=== PATIENT | male | born 1945 | race American Indian/Alaskan Native ===

== ENCOUNTER 2017-01-02 07:52 | Emergency (ER) | payer MEDICARE ==
[2017-01-02 07:58] VITALS: BMI 24.3
--- NOTE | 2017-01-02 08:22 | ED PDOC ---
Arrival/HPI - General Chief Complaint: Male Genitourinary Time Seen by Provider: 01/02/17 07:56 Historian: Patient - History of Present Illness Narrative History of Present Illness (Text): 01/02/17 08:10 A 71 year old male, whose past medical history includes hypertension and BPH, presents to the emergency department complaining of a swollen prostate and diffuse lower abdominal pain that started last night. Patient describe the pain as a pressure sensation to the lower abdomen and prostate. He notes he usually urinates more frequently but he has not tried to urinate since last night. He denies any hematuria, dysuira or penile discharge. Patient denies any fever, rectal pain, stool changes, or any other complaints at this time. PMD: Dr. Ball Urologist: Dr. Lincoln Time/Duration: Other (12-18 hours) Symptom Onset: Sudden Symptom Course: Unchanged Quality: Pressure Activities at Onset: Rest Context: Home Past Medical History - Provider Review Nursing Documentation Reviewed: Yes - Cardiac Hx Hypertension: Yes - Genitourinary/Gynecological Hx Prostate Problems: Yes (enlarged) - Psychiatric Hx Substance Use: No Family/Social History - Physician Review Nursing Documentation Reviewed: Yes Family/Social History: Unknown Family HX Smoking Status: Never Smoked Hx Alcohol Use: No Hx Substance Use: No Allergies/Home Meds Allergies/Adverse Reactions: Allergies Sulfa (Sulfonamide Antibiotics) Allergy (Verified 01/02/17 07:58) RASH Home Medications: Home Meds Medication Instructions Recorded Confirmed Tamsulosin [Flomax] 0.4 mg PO DAILY 01/02/17 01/02/17 Valsartan [Diovan] 80 mg PO DAILY 01/02/17 01/02/17 levoFLOXacin [Levaquin] 500 mg PO DAILY 01/02/17 01/02/17 Review of Systems - Physician Review All systems were reviewed & negative as marked: Yes - Review of Systems Constitutional: absent: Fevers Gastrointestinal: Abdominal Pain (lower abdomen). absent: Stool Changes, Constipation, Diarrhea, Other (rectal pain) Genitourinary Male: Frequency, Other (swollen prostate). absent: Dysuria, Hematuria Physical Exam Vital Signs Reviewed: Yes Vital Signs Temp Pulse Resp BP Pulse Ox 01/02/17 10:45 76 16 128/75 99 01/02/17 09:34 66 18 167/97 H 96 01/02/17 07:52 97.5 F L 93 H 18 167/107 H 99 Temperature: Afebrile Blood Pressure: Hypertensive Pulse: Regular Respiratory Rate: Normal Appearance: Positive for: Well-Appearing, Non-Toxic, Comfortable Pain Distress: None Mental Status: Positive for: Alert and Oriented X 3 - Systems Exam Abdomen: Present: Tenderness (diffuse lower abdominal tenderness with palpation) , Distention, Normal Bowel Sounds, Other (bladder fullness). No: Peritoneal Signs, Rebound, Guarding Rectal: Present: Other (Guaiac negative). No: Rectal Tenderness Genitourinary Male: Present: Prostate Enlargement. No: Penile Discharge Back: No: CVA Tenderness, Midline Tenderness, Paraspinal Tenderness Upper Extremity: Present: Normal Inspection. No: Cyanosis, Edema Lower Extremity: Present: Normal Inspection. No: Edema Neurological: Present: GCS=15, CN II-XII Intact, Speech Normal Skin: Present: Warm, Dry, Normal Color. No: Rashes Psychiatric: Present: Alert, Oriented x 3, Normal Insight, Normal Concentration Medical Decision Making ED Course and Treatment: 01/02/17 08:10 Impression: A 71 yea old male with enlarged prostate and lower abdominal pain. Differential Diagnosis include but are not limited to: urinary obstruction Plan: -- Labs -- Urinalysis -- Toradol -- Reassess and disposition Progress Notes: 01/02/17 09:50 On reevaluation after the [place]wood, abdomen is soft and not tender. Patient no longer has symptoms. UA pending. Case was discussed with Dr. Brandt who is covering for Dr. Lincoln who will f/u on the patient as an outpatient. Patient understands the importance of follow up with Dr. Lincoln in 1-2days. He was discharged with a norwood leg bag. UA negative. - Lab Interpretations Lab Results: 01/02/17 08:30 01/02/17 08:30 Lab Results 01/02/17 09:35: Urine Color Yellow, Urine Appearance Clear, Urine pH 7.0, Ur Specific [place] 1.010, Urine Protein Negative, Urine Glucose (UA) Negative, Urine Ketones Negative, Urine Blood Negative, Urine Nitrate Negative, Urine Bilirubin Negative, Urine Urobilinogen 0.2, Ur Leukocyte Esterase Negative 01/02/17 08:30: Sodium 140, Potassium 3.6, Chloride 104, Carbon Dioxide 26, Anion Gap 14, BUN 10, Creatinine 0.9, Est GFR ( Amer) > 60, Est GFR (Non- Af Amer) > 60, Random Glucose 133 H, Calcium 9.7, Total Bilirubin 0.7, AST 27, ALT 20, Alkaline Phosphatase 90, Total Protein 7.9, Albumin 4.5, Globulin 3.4, Albumin/Globulin Ratio 1.3 01/02/17 08:30: WBC 7.9, RBC 4.03, Hgb 12.4 L, Hct 37.5 L, MCV 93.1, MCH 30.8, MCHC 33.1, RDW 13.7, Plt Count 201, MPV 11.9 H, Gran % 62.7, Lymph % (Auto) 31.2 , [place] % (Auto) 5.5, Eos % (Auto) 0.5 L, Baso % (Auto) 0.1, Gran # 4.97, Lymph # 2.5, [place] # 0.4, Eos # 0.0, Baso # 0.01 I have reviewed the lab results: Yes - Medication Orders Current Medication Orders: Discontinued Medications Ketorolac Tromethamine (Toradol) 30 mg IVP STAT STA Stop: 01/02/17 08:16 - Scribe Statement The provider has reviewed the documentation as recorded by the Scribe Fox Arizmendi Provider Scribe Attestation: All medical record entries made by the Scribe were at my direction and personally dictated by me. I have reviewed the chart and agree that the record accurately reflects my personal performance of the history, physical exam, medical decision making, and the department course for this patient. I have also personally directed, reviewed, and agree with the discharge instructions and disposition. Disposition/Present on Arrival - Present on Arrival Any Indicators Present on Arrival: No History of DVT/PE: No History of Uncontrolled Diabetes: No Urinary Catheter: No History of Decub. Ulcer: No History Surgical Site Infection Following: None - Disposition Have Diagnosis and Disposition been Completed?: Yes Diagnosis: Urinary retention Disposition: HOME/ ROUTINE Disposition Time: 10:47 Patient Plan: Discharge Condition: IMPROVED Discharge Instructions (ExitCare): Urinary Retention in Men (ED) Additional Instructions: Mr Dial, thank you for letting us take care of you today. Your provider was Dr. Parikh. You were treated for Urinary Retention. The emergency medical care you received today was directed at your acute symptoms. If you were prescribed any medication, please fill it and take as directed. It may take several days for your symptoms to resolve. Return to the Emergency Department if your symptoms worsen, do not improve, or if you have any other problems. Please contact your doctor or call one of the physicians/clinics you have been referred to that are listed on the Patient Visit Information form that is included in your discharge packet. Bring any paperwork you were given at discharge with you along with any medications you are taking to your follow up visit. Our treatment cannot replace ongoing medical care by a primary care provider (PCP) outside of the emergency department. Thank you for allowing the [facility] team to be part of your care today. If you had an X-Ray or CT scan: A Radiologist will review the ED reading if any change in treatment is needed we will contact you. If you had a blood, urine, or wound culture: It will take several days for the results, if any change in treatment is needed we will contact you. If you had an STI test: It will take 48 hours for the results. Please call after 1 week if you have not heard back. Prescriptions: Ibuprofen [Motrin] 600 mg PO Q6 PRN #30 tab PRN Reason: Pain, Moderate (4-7) Referrals: Kurtis Lincoln MD [Staff Provider] - Follow up with primary Mihir Ball MD [Primary Care Provider] - Follow up with primary Forms: [employer] (Bengali), WORK NOTE
[2017-01-02 08:40] VITALS: TEMP 97.5
[2017-01-02 08:44] LABS: ADD MANUAL DIFF? NO
[2017-01-02 08:45] LABS: BASO # 0.01 K/mm3 (0.0-2.0); BASO % 0.1 % (0.0-3.0); EOS % 0.5 % (1.5-5.0); GRAN # 4.97 (1.4-6.5); GRAN % 62.7 % (50.0-68.0); HEMATOCRIT 37.5 % (42.0-52.0); LYMPH # 2.5 (1.2-3.4); LYMPH % 31.2 % (22.0-35.0); MEAN CELL VOLUME 93.1 fL (80.0-105.0); MEAN CORPUSCULAR HEMOGLOBIN 30.8 pg (25.0-35.0); MEAN CORPUSCULAR HGB CONC 33.1 g/dl (31.0-37.0); MEAN PLATELET VOLUME 11.9 fl (7.0-11.0); MONO # 0.4 (0.1-0.6); MONO % 5.5 % (1.0-6.0); PLATELET COUNT 201 10^3/uL (120.0-450.0); RED CELL DISTRIBUTION WIDTH 13.7 % (11.5-14.5); WHITE BLOOD COUNT 7.9 10^3/ul (4.5-11.0)
[2017-01-02 08:56] LABS: ALB/GLOB RATIO 1.3 (1.1-1.8); ALKALINE PHOSPHATASE 90 U/L (38-133); ALT/SGPT 20 U/L (7-56); AST/SGOT 27 U/L (15-59); BILIRUBIN,TOTAL 0.7 mg/dL (0.2-1.3); BLOOD UREA NITROGEN 10 mg/dL (7-21); CALCIUM 9.7 mg/dL (8.4-10.5); CARBON DIOXIDE 26 mmol/L (21-33); CHLORIDE 104 mmol/L (98-107); GFR AFRICAN-AMERICAN > 60; GLUCOSE,RANDOM 133 mg/dL (70-110); POTASSIUM 3.6 mmol/L (3.6-5.0); SODIUM 140 mmol/L (132-148); TOTAL PROTEIN 7.9 g/dL (5.8-8.3)
[2017-01-02 09:38] LABS: URINE BILIRUBIN NEGATIVE (NEGATIVE); URINE BLOOD NEGATIVE (NEGATIVE); URINE GLUCOSE (UA) NEGATIVE (NEGATIVE); URINE KETONE NEGATIVE (NEGATIVE); URINE LEUKOCYTE ESTERASE NEGATIVE Leu/uL (NEGATIVE); URINE PROTEIN NEGATIVE mg/dL (<30 mg/dL); URINE UROBILINOGEN 0.2 E.U./dL (<1 E.U./dL)
[2017-01-02 09:47] LABS: URINE APPEARANCE CLEAR (CLEAR); URINE COLOR YELLOW (YELLOW)
[2017-01-02 10:46] VITALS: BP 128/75; PULSE 76; RESP 16; O2SAT 99
== END 2017-01-02 10:47 | disposition home or self-care (01) ==
LOC: ED 07:52
DX: R33.9 Retention of urine, unspecified (principal); I10 Essential (primary) hypertension; N40.0 Benign prostatic hyperplasia without lower urinary tract symptoms

== ENCOUNTER 2017-10-20 09:14 | Day surgery (SDC) | payer MEDICARE ==
[2017-10-20] MEDS ORDERED: Propofol 10 mg/ml Inj (20 ML) ONE ×2 (11:25→11:42)
[2017-10-20] MEDS ORDERED: Sodium Chloride 0.9% 1,000 ML IV SCH (12:00)
[2017-10-20 13:30] VITALS: TEMP 97.6
[2017-10-20 13:56] VITALS: BP 147/86; PULSE 68; RESP 18; O2SAT 99
== END 2017-10-20 14:30 | disposition home or self-care (01) ==
LOC: ENDO 09:14
PROVIDERS: ATTEND Specialist
DX: Z12.11 Encounter for screening for malignant neoplasm of colon (principal); D12.4 Benign neoplasm of descending colon; K64.8 Other hemorrhoids; I10 Essential (primary) hypertension; N40.0 Benign prostatic hyperplasia without lower urinary tract symptoms; Z88.2 Allergy status to sulfonamides
CPT/HCPCS: 45380; 88305; J0360; J2001; J2704; J7040

== ENCOUNTER 2018-02-01 09:28 | Emergency (ER) | payer MEDICARE ==
[2018-02-01 09:50] VITALS: BMI 25.8
[2018-02-01 10:00] VITALS: TEMP 98.9
[2018-02-01] MEDS ORDERED: Sodium Chloride 0.9% 1,000 ML IV STA (10:00)
--- NOTE | 2018-02-01 10:08 | ED PDOC ---
Arrival/HPI - General Chief Complaint: Male Genitourinary Time Seen by Provider: 02/01/18 09:53 Historian: Patient - History of Present Illness Narrative History of Present Illness (Text): 02/01/18 10:05 72yo male with pmhx of hypertension and Prostate CA (last radiation on Wednesday) , present with complaint of b/l mid back pain. States pain started after his last radiation. Reports associated dysuria. Denies abdominal pain, fever, chills , nausea, vomiting, diarrhea, constipation, chest pain, trauma, urinary/fecal incontinence, any other complaint. Past Medical History - Provider Review Nursing Documentation Reviewed: Yes - Cardiac Hx Pacemaker: No - Neurological Hx Paralysis: No - Hematological/Oncological Hx Blood Transfusions: No - Musculoskeletal/Rheumatological Hx Musculoskeletal Disorders: No - Genitourinary/Gynecological Hx Prostate Problems: Yes (enlarged) - Psychiatric Hx Emotional Abuse: No Hx Physical Abuse: No Hx Substance Use: No - Anesthesia Hx Anesthesia Reactions: No Hx Malignant Hyperthermia: No - Suicidal Assessment Feels Threatened In Home Enviroment: No Family/Social History - Physician Review Nursing Documentation Reviewed: Yes Family/Social History: Unknown Family HX Smoking Status: Never Smoked Hx Alcohol Use: Yes (ON OCCASION) Hx Substance Use: No Allergies/Home Meds Allergies/Adverse Reactions: Allergies Sulfa (Sulfonamide Antibiotics) Allergy (Verified 01/02/17 07:58) RASH Home Medications: Home Meds Medication Instructions Recorded Confirmed Cholecalciferol (Vitamin D3) 5,000 units PO DAILY 10/07/17 10/20/17 [Vitamin D3] Cyanocobalamin [Vitamin B12 1000 1,000 mcg PO DAILY 10/07/17 10/20/17 mcg Tab] Valsartan [Diovan] 80 mg PO DAILY 10/07/17 10/20/17 Vitamin E 1,000 units PO DAILY 10/07/17 10/20/17 Zinc [Zinc Chelated] 50 mg PO DAILY 10/07/17 10/20/17 Review of Systems - Physician Review All systems were reviewed & negative as marked: Yes - Review of Systems Constitutional: Normal Eyes: Normal ENT: Normal Respiratory: Normal Cardiovascular: Normal Gastrointestinal: Normal Genitourinary Male: Normal Musculoskeletal: Back Pain Skin: Normal Neurological: Normal Endocrine: Normal Hemo/Lymphatic: Normal Psychiatric: Normal Physical Exam Vital Signs Reviewed: Yes Vital Signs Temp Pulse Resp BP Pulse Ox 02/01/18 13:10 81 17 125/80 98 02/01/18 11:30 84 18 131/78 99 02/01/18 09:29 98.9 F 89 18 133/79 99 Temperature: Afebrile Blood Pressure: Normal Pulse: Regular Respiratory Rate: Normal Appearance: Positive for: Well-Appearing, Non-Toxic, Comfortable Pain Distress: None Mental Status: Positive for: Alert and Oriented X 3 - Systems Exam Head: Present: Atraumatic, Normocephalic Pupils: Present: PERRL Extroacular Muscles: Present: EOMI Conjunctiva: Present: Normal Mouth: Present: Moist Mucous Membranes Neck: Present: Normal Range of Motion Respiratory/Chest: Present: Clear to Auscultation, Good Air Exchange. No: Respiratory Distress, Accessory Muscle Use Cardiovascular: Present: Regular Rate and Rhythm, Normal S1, S2. No: Murmurs Abdomen: No: Tenderness, Distention, Peritoneal Signs, Rebound, Guarding, McBurney's Point Tender, Rovsing's Sign Present Back: No: CVA Tenderness Upper Extremity: Present: Normal Inspection. No: Cyanosis, Edema Lower Extremity: Present: Normal Inspection. No: Edema Neurological: Present: GCS=15, CN II-XII Intact, Speech Normal Skin: Present: Warm, Dry, Normal Color. No: Rashes Psychiatric: Present: Alert, Oriented x 3, Normal Insight, Normal Concentration Medical Decision Making ED Course and Treatment: 02/01/18 19:59 PT presented to ED for stated history. He was afebrile and hemodynamically stable. Lab was unremarkable. He have UTI and was treated with Rocephin in ED and DC home with keflex. He declined abdominal/pelvis CT He was referred to a Urologist. Advised to return to ED for any new or worsening symptoms. - Lab Interpretations Lab Results: 02/01/18 10:00 02/01/18 10:00 Lab Results 02/01/18 10:00: Sodium 142, Potassium 3.7, Chloride 107, Carbon Dioxide 26, Anion Gap 14, BUN 9, Creatinine 0.9, Est GFR ( Amer) > 60, Est GFR (Non- Af Amer) > 60, Random Glucose 113 H, Calcium 9.5, Total Bilirubin 0.7, AST 20, ALT 19, Alkaline Phosphatase 78, Lactate Dehydrogenase 477, Total Creatine Kinase 145, Troponin I < 0.01, Total Protein 7.3, Albumin 4.1, Globulin 3.2, Albumin/Globulin Ratio 1.3, Amylase 40, Lipase 31 02/01/18 10:00: Urine Color Light yellow, Urine Appearance Cloudy, Urine pH 6.0 , Ur Specific [place] 1.010, Urine Protein 30 H, Urine Glucose (UA) Negative, Urine Ketones Negative, Urine Blood Large H, Urine Nitrate Negative, Urine Bilirubin Negative, Urine Urobilinogen 0.2, Ur Leukocyte Esterase Large H, Urine RBC Tntc, Urine WBC Tntc, Urine Bacteria Large 02/01/18 10:00: PT 12.7 H, INR 1.10 H, APTT 30.3 02/01/18 10:00: WBC 7.3, RBC 3.61, Hgb 10.9 L, Hct 33.4 L, MCV 92.5, MCH 30.2, MCHC 32.6, RDW 13.1, Plt Count 222, MPV 10.7, Gran % 42.8 L, Lymph % (Auto) 38.3 H, [place] % (Auto) 14.9 H, Eos % (Auto) 3.6, Baso % (Auto) 0.4, Gran # 3.10, Lymph # (Auto) 2.8, [place] # (Auto) 1.1 H, Eos # (Auto) 0.3, Baso # (Auto) 0.03 - Medication Orders Current Medication Orders: Discontinued Medications Sodium Chloride (Sodium Chloride 0.9%) 1,000 mls @ 999 mls/hr IV .Q1H1M STA Stop: 02/01/18 11:00 Last Admin: 02/01/18 10:20 Dose: 999 mls/hr eMAR Start Stop Document 02/01/18 10:20 SF (Rec: 02/01/18 10:21 [id number]) Intravenous Solution Start Date 02/01/18 Start Time 10:21 End Date 02/01/18 End time 11:22 Total Infusion Time 61 Ceftriaxone Sodium (Rocephin 1 Gram Ivpb) 1 gm in 100 mls @ 200 mls/hr IVPB STAT STA PRN Reason: Protocol Stop: 02/01/18 11:16 Last Admin: 02/01/18 11:06 Dose: 200 mls/hr eMAR Start Stop Document 02/01/18 11:06 SF (Rec: 02/01/18 11:06 SF [id number]) Intravenous Solution Start Date 02/01/18 Start Time 11:06 End Date 02/01/18 End time 11:36 Total Infusion Time 30 Ketorolac Tromethamine (Toradol) 30 mg IVP STAT STA Stop: 02/01/18 10:01 Last Admin: 02/01/18 10:21 Dose: 30 mg MAR Pain Assessment Document 02/01/18 10:21 SF (Rec: 02/01/18 10:21 SF [id number]) Pain Reassessment Is this a pain reassessment? Yes Sleep Is patient sleeping during reassessment? No Presence of Pain Presence of Pain Yes IVP Administration Document 02/01/18 10:21 SF (Rec: 02/01/18 10:21 SF [id number]) Charges for Administration # of IVP Administrations 1 Phenazopyridine HCl (Pyridium) 200 mg PO STAT STA Stop: 02/01/18 12:06 Last Admin: 02/01/18 13:14 Dose: 200 mg Disposition/Present on Arrival - Present on Arrival Any Indicators Present on Arrival: No History of DVT/PE: No History of Uncontrolled Diabetes: No Urinary Catheter: No History of Decub. Ulcer: No History Surgical Site Infection Following: None - Disposition Have Diagnosis and Disposition been Completed?: Yes Diagnosis: UTI (urinary tract infection) Disposition: HOME/ ROUTINE Disposition Time: 12:00 Patient Plan: Discharge Condition: STABLE Discharge Instructions (ExitCare): Urinary Tract Infections in Adults Additional Instructions: Follow up with your doctor/Urologist Return to ED for any new or worsening symptoms (fever, nausea, vomiting, abdominal pain) Prescriptions: Cephalexin [Keflex] 500 mg PO QID #28 capsule Phenazopyridine [Phenazopyridine HCl] 200 mg PO TID #6 tab Referrals: James Westfall MD [Staff Provider] - Follow up with primary Forms: [employer] (Paraguayan)
[2018-02-01 10:33] LABS: BASO # 0.03 K/mm3 (0.0-2.0); BASO % 0.4 % (0.0-3.0); EOS # 0.3 (0.0-0.7); EOS % 3.6 % (1.5-5.0); GRAN # 3.1 (1.4-6.5); GRAN % 42.8 % (50.0-68.0); HEMOGLOBIN 10.9 g/dL (14.0-18.0); LYMPH # 2.8 (1.2-3.4); LYMPH % 38.3 % (22.0-35.0); MEAN CELL VOLUME 92.5 fl (80.0-105.0); MEAN CORPUSCULAR HEMOGLOBIN 30.2 pg (25.0-35.0); MEAN CORPUSCULAR HGB CONC 32.6 g/dl (31.0-37.0); MEAN PLATELET VOLUME 10.7 fl (7.0-11.0); MONO # 1.1 (0.1-0.6); MONO % 14.9 % (1.0-6.0); RBC 3.61 10^6/uL (3.5-6.1); RED CELL DISTRIBUTION WIDTH 13.1 % (11.5-14.5); URINE BILIRUBIN NEGATIVE (NEGATIVE); URINE BLOOD LARGE (NEGATIVE); URINE GLUCOSE (UA) NEGATIVE (NEGATIVE); URINE LEUKOCYTE ESTERASE LARGE Leu/uL (NEGATIVE); URINE PROTEIN 30 mg/dL (<30 mg/dL); URINE UROBILINOGEN 0.2 E.U./dL (<1 E.U./dL); WHITE BLOOD COUNT 7.3 10^3/ul (4.5-11.0)
[2018-02-01 10:34] LABS: ALB/GLOB RATIO 1.3 (1.1-1.8); ALBUMIN 4.1 g/dL (3.0-4.8); ALT/SGPT 19 U/L (7-56); AMYLASE 40 U/L (35-125); AST/SGOT 20 U/L (17-59); BLOOD UREA NITROGEN 9 mg/dL (7-21); CALCIUM 9.5 mg/dL (8.4-10.5); GFR NON-AFRICAN AMERICAN > 60; LIPASE 31 U/L (23-300); URINE APPEARANCE CLOUDY (CLEAR); URINE COLOR LIGHT YELLOW (YELLOW)
[2018-02-01 10:41] LABS: INR 1.1 (0.93-1.08); PARTIAL THROMBOPLASTIN TIME 30.3 Seconds (25.1-36.5); PROTHROMBIN TIME 12.7 SECONDS (9.4-12.5)
[2018-02-01 10:43] LABS: URINE RBC TNTC /hpf (0-2); URINE WBC TNTC /hpf (0-6)
[2018-02-01 10:44] LABS: URINE BACTERIA LARGE (NEG)
[2018-02-01 10:45] LABS: TROPONIN I < 0.01 ng/mL
[2018-02-01] MEDS ORDERED: cefTRIAXone 1 gm 1 GM/100 ML BAG IVPB STA (10:47)
[2018-02-01 13:11] VITALS: BP 125/80; PULSE 81; RESP 17; O2SAT 98
== END 2018-02-01 13:15 | disposition home or self-care (01) ==
LOC: ED 09:28
DX: N39.0 Urinary tract infection, site not specified (principal); I10 Essential (primary) hypertension; Z85.46 Personal history of malignant neoplasm of prostate
CPT/HCPCS: 80053; 81001; 82150; 82550; 83615; 83690; 84484; 85025; 85610; 85730; 87040; 87086; 96361; 96365; 96375; 99285; J0696; J1885; J7030

== ENCOUNTER 2018-05-15 22:01 | Emergency (ER) | payer MEDICARE ==
[2018-05-15 22:02] VITALS: BMI 25.8
[2018-05-15 22:37] VITALS: RESP 18; TEMP 98.3
[2018-05-15] MEDS ORDERED: Sodium Chloride 0.9% 1,000 ML IV STA (23:11)
--- NOTE | 2018-05-15 23:20 | ED PDOC ---
Arrival/HPI - General Historian: Patient - History of Present Illness Narrative History of Present Illness (Text): 05/15/18 23:13 72yo male with pmhx hypertension, kidney stone, prostate CA on remission present with few days history of b/l mid back pain and suprapubic pain. States his PMd scheduled him to see a Urologist this week, but he couldn't take the pain anymore. States back pain is worse when sitting backward on a chair, otherwise no relieving factors. +Hematuria. Denies nausea, vomiting, fever, chills, dizziness, diarrhea, constipation, dysuria, urinary frequency, focal weakness, urinary/fecal incontinence, chest pain, saddle anesthesia, any other complaint. <Antonio Shell A - Last Filed: 05/16/18 01:29> <Beny Cervantes - Last Filed: 05/16/18 23:23> - General Chief Complaint: GI Problem Time Seen by Provider: 05/15/18 22:08 Past Medical History - Provider Review Nursing Documentation Reviewed: Yes - Cardiac Hx Pacemaker: No - Pulmonary Hx Respiratory Disorders: No - Neurological Hx Paralysis: No - HEENT Hx HEENT Disorder: No - Renal Hx Renal Disorder: No - Endocrine/Metabolic Hx Endocrine Disorders: No - Hematological/Oncological Hx Blood Transfusions: No - Integumentary Hx Dermatological Disorder: No - Musculoskeletal/Rheumatological Hx Musculoskeletal Disorders: No - Gastrointestinal Hx Gastrointestinal Disorders: No - Genitourinary/Gynecological Hx Prostate Cancer: Yes Hx Prostate Problems: Yes (enlarged) Other/Comment: Brachy therapy - Psychiatric Hx Emotional Abuse: No Hx Physical Abuse: No Hx Substance Use: No - Surgical History Other/Comment: biopsy of prostate - Anesthesia Hx Anesthesia: Yes Hx Anesthesia Reactions: No Hx Malignant Hyperthermia: No - Suicidal Assessment Feels Threatened In Home Enviroment: No <Antonio Shell A - Last Filed: 05/16/18 01:29> Family/Social History - Physician Review Nursing Documentation Reviewed: Yes Family/Social History: Unknown Family HX Smoking Status: Never Smoked Hx Alcohol Use: Yes (ON OCCASION) Frequency of alcohol use: Socially Hx Substance Use: No <Antonio Shell A - Last Filed: 05/16/18 01:29> Allergies/Home Meds <Antonio Shell A - Last Filed: 05/16/18 01:29> <Beny Cervantes - Last Filed: 05/16/18 23:23> Allergies/Adverse Reactions: Allergies Sulfa (Sulfonamide Antibiotics) Allergy (Verified 05/15/18 22:50) RASH Home Medications: Home Meds Medication Instructions Recorded Confirmed Cholecalciferol (Vitamin D3) 5,000 units PO DAILY 10/07/17 10/20/17 [Vitamin D3] Cyanocobalamin [Vitamin B12 1000 1,000 mcg PO DAILY 10/07/17 10/20/17 mcg Tab] RX: Valsartan [Diovan] 80 mg PO DAILY 10/07/17 10/20/17 RX: Vitamin E 1,000 units PO DAILY 10/07/17 10/20/17 RX: Zinc [Zinc Chelated] 50 mg PO DAILY 10/07/17 10/20/17 Review of Systems - Physician Review All systems were reviewed & negative as marked: Yes - Review of Systems Constitutional: Normal Eyes: Normal ENT: Normal Respiratory: Normal Cardiovascular: Normal Gastrointestinal: Abdominal Pain. absent: Constipation, Diarrhea, Nausea, Vomiting, Hematochezia, Hematemesis Genitourinary Male: Normal Musculoskeletal: Back Pain Skin: Normal Neurological: Normal Endocrine: Normal Hemo/Lymphatic: Normal Psychiatric: Normal <Antonio Shell - Last Filed: 05/16/18 01:29> Physical Exam Vital Signs Reviewed: Yes Vital Signs Temp Pulse Resp BP Pulse Ox 05/15/18 22:02 98.3 F 80 18 186/101 H 97 Temperature: Afebrile Blood Pressure: Normal Pulse: Regular Respiratory Rate: Normal Appearance: Positive for: Well-Appearing, Non-Toxic, Comfortable Pain Distress: None Mental Status: Positive for: Alert and Oriented X 3 - Systems Exam Head: Present: Atraumatic, Normocephalic Pupils: Present: PERRL Extroacular Muscles: Present: EOMI Conjunctiva: Present: Normal Mouth: Present: Moist Mucous Membranes Neck: Present: Normal Range of Motion Respiratory/Chest: Present: Clear to Auscultation, Good Air Exchange. No: Respiratory Distress, Accessory Muscle Use Cardiovascular: Present: Regular Rate and Rhythm, Normal S1, S2. No: Murmurs Abdomen: Present: Tenderness (Suprapubic tenderness), Normal Bowel Sounds (Hyperactive x 4), Guarding (Voluntary), Other (Soft). No: Distention, Peritoneal Signs, Rebound, McBurney's Point Tender, Rovsing's Sign Present Back: No: CVA Tenderness, Midline Tenderness, Paraspinal Tenderness Upper Extremity: Present: Normal Inspection. No: Cyanosis, Edema Lower Extremity: Present: Normal Inspection. No: Edema Neurological: Present: GCS=15, CN II-XII Intact, Speech Normal Skin: Present: Warm, Dry, Normal Color. No: Rashes Psychiatric: Present: Alert, Oriented x 3, Normal Insight, Normal Concentration <Diru,Happiness A - Last Filed: 05/16/18 01:29> Vital Signs Temp Pulse Resp BP Pulse Ox 05/16/18 02:43 84 18 170/100 H 98 05/15/18 22:02 98.3 F 80 18 186/101 H 97 <Beny Cervantes - Last Filed: 05/16/18 23:23> Medical Decision Making ED Course and Treatment: 05/15/18 23:32 72yo male in ED for b/l mid back pain and suprapubic pain x days. Pt reported history of kidney stone. He had no CVAT b/l Differential includes kidney stone vs UTI Vs muscular back pain Labs Abd/pelvis CT 1L Ns Toradol will reassess 05/16/18 01:31 IMPRESSION: Moderate prostatomegaly. Significantly distended, thickened bladder suggestive of urinary retention. Secondary moderate bilateral hydroureteronephrosis. Radiotherapy seeds of the prostate are noted. Uncomplicated left inguinal hernia containing nonincarcerated small bowel. Right posterior lateral bladder diverticulum is noted. Pt is hemodynamically stable in ED. He had no leukocytosis. Potassium was repleted. He have UTI treated with Rocephin in ED Pt notes he is on Fosmax. States he is able to urinate. He have appointment with his Urologist on Wednesday. He will be DC home with keflex All result was DW the pt. - RAD Interpretation Radiology Orders: 05/15/18 23:11 ABD & PELVIS W/O PO OR IV CONT [CT] Stat <Diru,Happiness A - Last Filed: 05/16/18 01:29> - Lab Interpretations Lab Results: 05/15/18 23:42 05/15/18 23:42 Lab Results 05/16/18 00:01: Urine Color Yellow, Urine Appearance Cloudy, Urine pH 6.5, Ur Specific [place] <= 1.005, Urine Protein 30 H, Urine Glucose (UA) Negative, Urine Ketones Negative, Urine Blood Large H, Urine Nitrate Positive H, Urine Bilirubin Negative, Urine Urobilinogen 0.2, Ur Leukocyte Esterase Large H, Urine RBC 1 - 3, Urine WBC Tntc, Ur Epithelial Cells 0 - 2, Urine Bacteria Mod 05/15/18 23:42: Sodium 133, Potassium 3.1 L, Chloride 98, Carbon Dioxide 25, Anion Gap 13, BUN 8, Creatinine 1.0, Est GFR ( Amer) > 60, Est GFR (Non- Af Amer) > 60, Random Glucose 108, Calcium 9.2, Magnesium 2.0, Total Bilirubin 0.7, AST 33, ALT 23, Alkaline Phosphatase 85, Total Protein 7.3, Albumin 4.0, Globulin 3.2, Albumin/Globulin Ratio 1.2, Lipase 33 05/15/18 23:42: PT 12.2, INR 1.07, APTT 27.4 05/15/18 23:42: WBC 5.3 D, RBC 3.80, Hgb 11.2 L, Hct 34.1 L, MCV 89.7, MCH 29.5, MCHC 32.8, RDW 14.2, Plt Count 211, MPV 10.8, Gran % 47.9 L, Lymph % (Auto) 35.8 H, [place] % (Auto) 14.8 H, Eos % (Auto) 1.1 L, Baso % (Auto) 0.4, Gran # 2.55, Lymph # (Auto) 1.9, [place] # (Auto) 0.8 H, Eos # (Auto) 0.1, Baso # (Auto) 0.02 - RAD Interpretation Radiology Orders: 05/15/18 23:11 ABD & PELVIS W/O PO OR IV CONT [CT] Stat - Medication Orders Current Medication Orders: Discontinued Medications Sodium Chloride (Sodium Chloride 0.9%) 1,000 mls @ 1,000 mls/hr IV .Q1H STA Stop: 05/16/18 00:10 Last Admin: 05/15/18 23:44 Dose: 1,000 mls/hr eMAR Start Stop Document 05/15/18 23:44 SS (Rec: 05/15/18 23:44 SS [id number]) Intravenous Solution Start Date 05/15/18 Start Time 23:44 End Date 05/16/18 End time 00:44 Total Infusion Time 60 Ceftriaxone Sodium (Rocephin 1 Gram Ivpb) 1 gm in 100 mls @ 200 mls/hr IVPB STAT STA; Protocol Stop: 05/16/18 01:16 Last Admin: 05/16/18 01:32 Dose: 200 mls/hr eMAR Start Stop Document 05/16/18 01:32 SS (Rec: 05/16/18 01:32 SS [id number]) Intravenous Solution Start Date 05/16/18 Start Time 01:32 End Date 05/16/18 End time 02:02 Total Infusion Time 30 Ketorolac Tromethamine (Toradol) 30 mg IVP STAT STA Stop: 05/15/18 23:12 Last Admin: 05/15/18 23:44 Dose: 30 mg MAR Pain Assessment Document 05/15/18 23:44 SS (Rec: 05/15/18 23:45 SS [id number]) Pain Reassessment Is this a pain reassessment? No Sleep Is patient sleeping during reassessment? No Presence of Pain Presence of Pain Yes Pain Scale Used Protocol: PSCALES Pain Scale Used Numeric Location Upper or Lower Lower Pain Location Body Site Abdomen Description Pain Behavior Rubbing Site Restlessness IVP Administration Document 05/15/18 23:44 SS (Rec: 05/15/18 23:45 SS [id number]) Charges for Administration # of IVP Administrations 1 Potassium Chloride (K-Dur 20 Meq Er Tab) 40 meq PO STAT STA Stop: 05/16/18 00:12 Last Admin: 05/16/18 00:58 Dose: 40 meq <Beny Cervantes - Last Filed: 05/16/18 23:23> - PA / CAR WASH ATTENDANT / Resident Statement PARK has reviewed & agrees with the documentation as recorded. PARK has examined the patient and agrees with the treatment plan. <Beny Cervantes - Last Filed: 05/16/18 23:23> Disposition/Present on Arrival - Present on Arrival Any Indicators Present on Arrival: No History of DVT/PE: No History of Uncontrolled Diabetes: No Urinary Catheter: No History of Decub. Ulcer: No History Surgical Site Infection Following: None - Disposition Have Diagnosis and Disposition been Completed?: Yes Disposition Time: 01:40 Patient Plan: Discharge <Antonio Shell - Last Filed: 05/16/18 01:29> <Beny Cervantes - Last Filed: 05/16/18 23:23> - Disposition Diagnosis: UTI (urinary tract infection) Disposition: HOME/ ROUTINE Condition: STABLE Discharge Instructions (ExitCare): Urinary Tract Infections in Adults Additional Instructions: Follow up with your Urologist Return to ED for any new or worsening symptoms Prescriptions: Cephalexin [cephalexin] 500 mg PO QID #28 cap Referrals: Wallace Peralta MD [Primary Care Provider] - Follow up with primary Forms: [employer] (Armenian)
[2018-05-15 23:58] LABS: BASO # 0.02 K/mm3 (0.0-2.0); BASO % 0.4 % (0.0-3.0); EOS # 0.1 (0.0-0.7); EOS % 1.1 % (1.5-5.0); GRAN # 2.55 (1.4-6.5); GRAN % 47.9 % (50.0-68.0); HEMOGLOBIN 11.2 g/dL (14.0-18.0); LYMPH # 1.9 (1.2-3.4); LYMPH % 35.8 % (22.0-35.0); MEAN CELL VOLUME 89.7 fl (80.0-105.0); MEAN CORPUSCULAR HEMOGLOBIN 29.5 pg (25.0-35.0); MEAN CORPUSCULAR HGB CONC 32.8 g/dl (31.0-37.0); MEAN PLATELET VOLUME 10.8 fl (7.0-11.0); MONO # 0.8 (0.1-0.6); MONO % 14.8 % (1.0-6.0); RBC 3.8 10^6/uL (3.5-6.1); RED CELL DISTRIBUTION WIDTH 14.2 % (11.5-14.5); WHITE BLOOD COUNT 5.3 10^3/ul (4.5-11.0)
[2018-05-16 00:04] LABS: INR 1.07; PARTIAL THROMBOPLASTIN TIME 27.4 Seconds (25.1-36.5); PROTHROMBIN TIME 12.2 SECONDS (9.4-12.5)
[2018-05-16 00:09] LABS: ALB/GLOB RATIO 1.2 (1.1-1.8); ALT/SGPT 23 U/L (7-56); AST/SGOT 33 U/L (17-59); BLOOD UREA NITROGEN 8 mg/dL (7-21); CALCIUM 9.2 mg/dL (8.4-10.5); GFR NON-AFRICAN AMERICAN > 60; LIPASE 33 U/L (23-300)
[2018-05-16] MEDS ORDERED: Potassium Chloride 20 mEq ER Tab PO STA (00:11)
[2018-05-16 00:19] LABS: PH,URINE 6.5 (4.7-8.0); URINE BILIRUBIN NEGATIVE (NEGATIVE); URINE BLOOD LARGE (NEGATIVE); URINE GLUCOSE (UA) NEGATIVE (NEGATIVE); URINE LEUKOCYTE ESTERASE LARGE Leu/uL (NEGATIVE); URINE PROTEIN 30 mg/dL (<30 mg/dL); URINE UROBILINOGEN 0.2 E.U./dL (<1 E.U./dL)
[2018-05-16 00:24] LABS: URINE APPEARANCE CLOUDY (CLEAR); URINE COLOR YELLOW (YELLOW)
[2018-05-16 00:34] LABS: URINE EPITHELIAL CELLS 0 - 2 /hpf (0-5); URINE WBC TNTC /hpf (0-6)
[2018-05-16 00:38] LABS: URINE BACTERIA MOD (NEG)
[2018-05-16] MEDS ORDERED: cefTRIAXone 1 gm 1 GM/100 ML BAG IVPB STA (00:47)
[2018-05-16 02:44] VITALS: BP 170/100; PULSE 84; O2SAT 98
--- NOTE | 2018-05-16 10:32 | CT ---
Date of service: 05/16/2018 PROCEDURE: CT Abdomen and Pelvis without intravenous contrast HISTORY: back/abdominal pain COMPARISON: None. TECHNIQUE: Without contrast. Contrast dose: Radiation dose: Total exam DLP = 503 mGy-cm. This CT exam was performed using one or more of the following dose reduction techniques: Automated exposure control, adjustment of the mA and/or kV according to patient size, and/or use of iterative reconstruction technique. FINDINGS: LOWER THORAX: Unremarkable. LIVER: Unremarkable. No gross lesion or ductal dilatation. GALLBLADDER AND BILE DUCTS: Unremarkable. PANCREAS: Unremarkable. No gross lesion or ductal dilatation. SPLEEN: Unremarkable. ADRENALS: Unremarkable. No mass. KIDNEYS AND URETERS: There is moderate bilateral hydronephrosis and distention of the bladder. There is a 2 mm nonobstructing stone in the right kidney VASCULATURE: Unremarkable. No aortic aneurysm. BOWEL: Unremarkable. No obstruction. No gross mural thickening. There is a left inguinal hernia containing a loop of small bowel. There is no associated obstruction. APPENDIX: Unremarkable. Normal appendix. PERITONEUM: Unremarkable. No free fluid. No free air. LYMPH NODES: Unremarkable. No enlarged lymph nodes. BLADDER: Distention of the bladder REPRODUCTIVE: Multiple radiation seeds are seen in the prostate. The prostate is enlarged measuring 63 x 69 mm. BONES: No acute fracture. OTHER FINDINGS: The report concurs with the preliminary [facility] report IMPRESSION: Distended bladder with moderate bilateral hydronephrosis. Left inguinal hernia containing a loop of small bowel with no associated obstruction. Enlarged prostate containing metallic radiation therapy seeds.
--- NOTE | 2018-05-16 13:05 | CARD ---
APPROVED REPORT Date of service: 05/15/2018 EKG Measurement Heart [id number] <Conclusion> Normal sinus rhythm Right bundle branch block Abnormal ECG
== END 2018-05-16 02:43 | disposition home or self-care (01) ==
LOC: ED 22:01
DX: N39.0 Urinary tract infection, site not specified (principal); I10 Essential (primary) hypertension
CPT/HCPCS: 74176; 80053; 81001; 83690; 83735; 85025; 85610; 85730; 87086; 93005; 96361; 96365; 96375; 99283; J0696; J1885; J7030

== ENCOUNTER 2018-06-01 14:59 | Emergency (ER) | payer MEDICARE ==
[2018-06-01 15:11] VITALS: BMI 26.1
[2018-06-01 15:18] VITALS: RESP 18; TEMP 97.9
--- NOTE | 2018-06-01 15:36 | ED PDOC ---
Arrival/HPI - General Chief Complaint: Male Genitourinary Time Seen by Provider: 06/01/18 15:13 Historian: Patient - History of Present Illness Narrative History of Present Illness (Text): 06/01/18 16:04 72yo male with pmhx of hypertension, Prostate CA on remission who present with complaint of urinary retention x 2weeks. States he has dripping for the past two weeks. Saw his PMD and was referred to the ED. Reports lower abdominal discomfort. Denies fever, chills, back pain, dysuria, any other complaint. Past Medical History - Provider Review Nursing Documentation Reviewed: Yes - Infectious Disease Hx of Infectious Diseases: None - Cardiac Hx Hypertension: Yes Hx Pacemaker: No - Pulmonary Hx Respiratory Disorders: No - Neurological Hx Paralysis: No - HEENT Hx HEENT Disorder: No - Renal Hx Renal Disorder: No - Endocrine/Metabolic Hx Endocrine Disorders: No - Hematological/Oncological Hx Blood Transfusions: No - Integumentary Hx Dermatological Disorder: No - Musculoskeletal/Rheumatological Hx Musculoskeletal Disorders: No - Gastrointestinal Hx Gastrointestinal Disorders: No - Genitourinary/Gynecological Hx Prostate Cancer: Yes Hx Prostate Problems: Yes (enlarged) Other/Comment: Brachy therapy - Psychiatric Hx Emotional Abuse: No Hx Physical Abuse: No Hx Substance Use: No - Surgical History Other/Comment: biopsy of prostate - Anesthesia Hx Anesthesia: Yes Hx Anesthesia Reactions: No Hx Malignant Hyperthermia: No - Suicidal Assessment Feels Threatened In Home Enviroment: No Family/Social History - Physician Review Nursing Documentation Reviewed: Yes Family/Social History: Unknown Family HX Smoking Status: Never Smoked Hx Alcohol Use: Yes (ON OCCASION) Hx Substance Use: No Allergies/Home Meds Allergies/Adverse Reactions: Allergies Sulfa (Sulfonamide Antibiotics) Allergy (Verified 05/15/18 22:50) RASH Home Medications: Home Meds Medication Instructions Recorded Confirmed Losartan [Cozaar] 1 tab PO DAILY 06/01/18 06/01/18 Tamsulosin [Flomax] 1 cap PO BID 06/01/18 06/01/18 Review of Systems - Physician Review All systems were reviewed & negative as marked: Yes - Review of Systems Constitutional: Normal Eyes: Normal ENT: Normal Respiratory: Normal Cardiovascular: Normal Gastrointestinal: Normal Genitourinary Male: absent: Urinary Output Changes (Urinary retention) Musculoskeletal: Normal Skin: Normal Neurological: Normal Endocrine: Normal Hemo/Lymphatic: Normal Psychiatric: Normal Physical Exam Vital Signs Reviewed: Yes Vital Signs Temp Pulse Resp BP Pulse Ox 06/01/18 14:59 97.9 F 72 18 190/94 H 98 Temperature: Afebrile Blood Pressure: Normal Pulse: Regular Respiratory Rate: Normal Appearance: Positive for: Well-Appearing, Non-Toxic, Comfortable Pain Distress: None Mental Status: Positive for: Alert and Oriented X 3 - Systems Exam Head: Present: Atraumatic, Normocephalic Pupils: Present: PERRL Extroacular Muscles: Present: EOMI Conjunctiva: Present: Normal Mouth: Present: Moist Mucous Membranes Neck: Present: Normal Range of Motion Respiratory/Chest: Present: Clear to Auscultation, Good Air Exchange. No: Respiratory Distress, Accessory Muscle Use Cardiovascular: Present: Regular Rate and Rhythm, Normal S1, S2. No: Murmurs Abdomen: Present: Distention (Mild distention of the pelvic/lower abdomen noted), Normal Bowel Sounds, Other (Soft). No: Tenderness, Peritoneal Signs, Rebound, Guarding, Rovsing's Sign Present Back: Present: Normal Inspection Upper Extremity: Present: Normal Inspection. No: Cyanosis, Edema Lower Extremity: Present: Normal Inspection. No: Edema Neurological: Present: GCS=15, CN II-XII Intact, Speech Normal Skin: Present: Warm, Dry, Normal Color. No: Rashes Psychiatric: Present: Alert, Oriented x 3, Normal Insight, Normal Concentration Medical Decision Making ED Course and Treatment: 06/01/18 19:39 Pt presented to ED for stated history. His BP was elevated and he reported taking his medication today. He was neurologically intact. Trotter was inserted and over 2L of urine was noted. His BP improved slightly with medication in ED UA and UC was ordered. Pt however noted that he didn't finish the antibiotic he was given here earlier this month for UTI and he was called in [facility], but also did not take it. He was given a rx of another Vantin and was strongly advised to take it and f/u with Urologist He will be DC home with a leg bag. Disposition/Present on Arrival - Present on Arrival Any Indicators Present on Arrival: No History of DVT/PE: No History of Uncontrolled Diabetes: No Urinary Catheter: No History of Decub. Ulcer: No History Surgical Site Infection Following: None - Disposition Have Diagnosis and Disposition been Completed?: Yes Diagnosis: Acute urinary retention Disposition: HOME/ ROUTINE Disposition Time: 19:45 Patient Plan: Discharge Patient Problems: Current Active Problems Problem Status Onset Acute urinary retention Acute Condition: STABLE Discharge Instructions (ExitCare): Urinary Retention Additional Instructions: Follow up with a Urologist Return to ED for any new or worsening symptoms Prescriptions: Cefpodoxime [Vantin] 100 mg PO BID #14 tab Referrals: Wallace Peralta MD [Primary Care Provider] - Follow up with primary Brianna Westfall MD [Staff Provider] - Follow up with primary Forms: [employer] (Gabonese)
[2018-06-01 16:39] LABS: PH,URINE 6.5 (4.7-8.0); URINE BILIRUBIN NEGATIVE (NEGATIVE); URINE BLOOD NEGATIVE (NEGATIVE); URINE GLUCOSE (UA) NEGATIVE (NEGATIVE); URINE LEUKOCYTE ESTERASE NEGATIVE Leu/uL (NEGATIVE); URINE PROTEIN NEGATIVE mg/dL (<30 mg/dL); URINE UROBILINOGEN 0.2 E.U./dL (<1 E.U./dL)
[2018-06-01 16:43] LABS: URINE APPEARANCE CLEAR (CLEAR); URINE COLOR LIGHT YELLOW (YELLOW)
[2018-06-01 20:58] VITALS: BP 190/97; PULSE 83
[2018-06-01 21:23] VITALS: O2SAT 98
== END 2018-06-01 21:18 | disposition home or self-care (01) ==
LOC: ED 14:59
DX: R33.9 Retention of urine, unspecified (principal)

== ENCOUNTER 2018-06-12 20:57 | Inpatient (IN) | payer MEDICARE ==
[2018-06-12] MEDS ORDERED: Sodium Chloride 0.9% 1,000 ML IV STA (21:33)
--- NOTE | 2018-06-12 21:37 | ED PDOC ---
Arrival/HPI - General Chief Complaint: Dizziness/Lightheaded Time Seen by Provider: 06/12/18 21:22 Historian: Patient - History of Present Illness Narrative History of Present Illness (Text): 06/12/18 21:33 Corby Dial is a 72 year old male, whose past medical history includes hypertension and prostate cancer s/p radiation, who presents to the Emergency department brought in by EMS complaining of near-syncope. Patient states he has was at home and has been experiencing generalized weakness/malaise today. Patient reports he felt near-syncopal tonight and notes he legs "gave out" from underneath him. Patient notes he recently finished a course of Vantin for a "kidney infection." Patient denies any chest pain, shortness of breath, nausea, back pain, neck pain, headache, dizziness, or any other complaints. PMD: Dr. Peralta Urologist: Dr. Karma Westfall Symptom Onset: Gradual Symptom Course: Unchanged Activities at Onset: Light Context: Home Past Medical History - Provider Review Nursing Documentation Reviewed: Yes - Infectious Disease Hx of Infectious Diseases: None - Cardiac Hx Hypertension: Yes Hx Pacemaker: No - Pulmonary Hx Respiratory Disorders: No - Neurological Hx Paralysis: No - HEENT Hx HEENT Disorder: No - Renal Hx Renal Disorder: No - Endocrine/Metabolic Hx Endocrine Disorders: No - Hematological/Oncological Hx Blood Transfusions: No - Integumentary Hx Dermatological Disorder: No - Musculoskeletal/Rheumatological Hx Musculoskeletal Disorders: No - Gastrointestinal Hx Gastrointestinal Disorders: No - Genitourinary/Gynecological Hx Prostate Cancer: Yes Hx Prostate Problems: Yes (enlarged) Other/Comment: Brachy therapy - Psychiatric Hx Emotional Abuse: No Hx Physical Abuse: No Hx Substance Use: No - Surgical History Other/Comment: biopsy of prostate - Anesthesia Hx Anesthesia: Yes Hx Anesthesia Reactions: No Hx Malignant Hyperthermia: No - Suicidal Assessment Feels Threatened In Home Enviroment: No Family/Social History - Physician Review Nursing Documentation Reviewed: Yes Family/Social History: Unknown Family HX Smoking Status: Never Smoked Hx Alcohol Use: Yes (ON OCCASION) Hx Substance Use: No Allergies/Home Meds Allergies/Adverse Reactions: Allergies Sulfa (Sulfonamide Antibiotics) Allergy (Verified 05/15/18 22:50) RASH Home Medications: Home Meds Medication Instructions Recorded Confirmed Losartan [Cozaar] 1 tab PO DAILY 06/01/18 06/01/18 Tamsulosin [Flomax] 1 cap PO BID 06/01/18 06/01/18 Review of Systems - Physician Review All systems were reviewed & negative as marked: Yes - Review of Systems Constitutional: Other (+generalized malaise/weakness) Eyes: Normal ENT: Normal Respiratory: Normal. absent: SOB, Cough Cardiovascular: Other (+near-syncopal). absent: Chest Pain Gastrointestinal: Vomiting Musculoskeletal: Normal. absent: Back Pain, Neck Pain Skin: Normal. absent: Rash Endocrine: Normal Hemo/Lymphatic: Normal Psychiatric: Normal Physical Exam Vital Signs Reviewed: Yes Vital Signs Temp Pulse Resp BP Pulse Ox 06/12/18 21:12 101.1 F H 110 H 21 155/89 H 97 Temperature: Febrile Blood Pressure: Hypertensive Pulse: Regular Respiratory Rate: Normal Appearance: Positive for: Well-Appearing, Non-Toxic, Comfortable Pain Distress: None Mental Status: Positive for: Alert and Oriented X 3 - Systems Exam Head: Present: Atraumatic, Normocephalic Pupils: Present: PERRL Extroacular Muscles: Present: EOMI Conjunctiva: Present: Normal Ears: Present: Normal, NORMAL TM, Normal Canal. No: Erythema, TM Bulging, Fluid, TM Perf Mouth: Present: Moist Mucous Membranes Pharnyx: Present: Normal. No: ERYTHEMA, EXUDATE, TONSILS ENLARGED, Peritonsilar Swelling, Uvular Deviation, Muffled/Hoarse Voice, Strider, Soft Palate/Uvular Edema Nose (External): Present: Atraumatic Nose (Internal): Present: Normal Inspection Neck: Present: Normal Range of Motion Respiratory/Chest: Present: Clear to Auscultation, Good Air Exchange. No: Respiratory Distress, Accessory Muscle Use Cardiovascular: Present: Regular Rate and Rhythm, Normal S1, S2. No: Murmurs Abdomen: No: Tenderness, Distention, Peritoneal Signs Back: Present: Normal Inspection. No: CVA Tenderness, Midline Tenderness, Paraspinal Tenderness Upper Extremity: Present: Normal Inspection. No: Cyanosis, Edema Lower Extremity: Present: Normal Inspection. No: Edema Neurological: Present: GCS=15, CN II-XII Intact, Speech Normal, Motor Func Grossly Intact, Normal Sensory Function, Normal Cerebellar Funct, Memory Normal Skin: Present: Warm, Dry, Normal Color. No: Rashes Psychiatric: Present: Alert, Oriented x 3, Normal Insight, Normal Concentration Medical Decision Making ED Course and Treatment: 06/12/18 21:33 Impression: 72 year old male presents of near-syncopal and generalized weakness. Plan: -- CT Head w/o contrast -- EKG -- CXR -- Labs, cardiac enzymes, VBG, blood cultures -- Urinalysis, urine cultures -- IV fluids -- Tylenol -- Reassess and disposition Prior Visits: Notes and results from previous visits were reviewed. On 06/01/2018, patient was seen in the Emergency department for urinary retention. Patient was discharged home on Vantin. Progress Notes: 06/12/18 22:53 Chest X-ray reviewed, shows no acute processes. 06/12/18 23:00 Reviewed EKG, NSR at 100 bpm. RBBB. No acute changes. 06/12/18 23:45 CT Head reviewed, shows: BRAIN Chronic periventricular and subcortical microvascular disease is seen. VENTRICLES: There is generalized parenchymal atrophy noted as demonstrated by symmetrical dilatation of ventricles and sulci. ORBITS: The orbits are unremarkable. SINUSES AND MASTOIDS: The paranasal sinuses and mastoid air cells are clear. BONES: No fracture. SOFT TISSUES: Unremarkable. MISCELLANEOUS: No acute intracranial pathology. IMPRESSION: 1. There is generalized parenchymal atrophy noted as demonstrated by symmetrical dilatation of ventricles and sulci. 2. Chronic periventricular and subcortical microvascular disease is seen. 3. No acute intracranial pathology. Electronically signed on Jun 12, 2018 11:39:08 PM EST by: Amarjit Randle M.D., ADILSON Certified By [facility] Fellowship Trained MRI and CT Specialist 06/12/18 23:[address] Ash, who is aware and agrees with plan. Accepts pt in to her service. Pt will go to telemetry observation for near-syncope, urinary retention, fever, and UTI. 06/13/18 00:38 Trotter catheter placed by RN, draining 1100cc of cloudy urine. No immediate complications. - Lab Interpretations I have reviewed the lab results: Yes - RAD Interpretation Radiology Orders: 06/12/18 21:31 CHEST PORTABLE [RAD] Stat 06/12/18 21:32 HEAD W/O CONTRAST [CT] Stat Granite Polisher: ED Physician, Radiologist - EKG Interpretation Interpreted by ED Physician: Yes Type: 12 lead EKG - Medication Orders Current Medication Orders: Acetaminophen (Tylenol 325mg Tab) 975 mg PO STAT STA Stop: 06/12/18 21:33 Sodium Chloride (Sodium Chloride 0.9%) 1,000 mls @ 999 mls/hr IV .Q1H1M STA Stop: 06/12/18 22:33 - Scribe Statement The provider has reviewed the documentation as recorded by the Stephanie Becerril Provider Scribe Attestation: All medical record entries made by the Scribe were at my direction and personally dictated by me. I have reviewed the chart and agree that the record accurately reflects my personal performance of the history, physical exam, medical decision making, and the department course for this patient. I have also personally directed, reviewed, and agree with the discharge instructions and disposition. Disposition/Present on Arrival - Present on Arrival Any Indicators Present on Arrival: No History of DVT/PE: No History of Uncontrolled Diabetes: No Urinary Catheter: No History of Decub. Ulcer: No History Surgical Site Infection Following: None - Disposition Have Diagnosis and Disposition been Completed?: Yes Diagnosis: Near syncope, Urinary retention, UTI (urinary tract infection) Disposition: HOSPITALIZED Disposition Time: 00:44 Patient Problems: Current Active Problems Problem Status Onset Near syncope Acute UTI (urinary tract infection) Acute Urinary retention Acute Condition: STABLE
[2018-06-12 21:52] LABS: BASO # 0.01 K/mm3 (0.0-2.0); BASO % 0.2 % (0.0-3.0); GRAN # 3.68 (1.4-6.5); GRAN % 67.1 % (50.0-68.0); HEMOGLOBIN 10.4 g/dL (14.0-18.0); LYMPH # 0.5 (1.2-3.4); LYMPH % 8.8 % (22.0-35.0); MEAN CELL VOLUME 89.4 fl (80.0-105.0); MEAN CORPUSCULAR HGB CONC 32.4 g/dl (31.0-37.0); MONO # 1.3 (0.1-0.6); MONO % 23.9 % (1.0-6.0); PLATELET COUNT 258 10^3/uL (120.0-450.0); RBC 3.59 10^6/uL (3.5-6.1); RED CELL DISTRIBUTION WIDTH 13.9 % (11.5-14.5); WHITE BLOOD COUNT 5.5 10^3/uL (4.5-11.0)
[2018-06-12 22:01] LABS: INR 1.15; PROTHROMBIN TIME 13.2 SECONDS (9.4-12.5)
[2018-06-12 22:19] LABS: VENOUS BLOOD GAS PO2 45 mm/Hg (30-55)
[2018-06-12 22:30] LABS: TROPONIN I 0.04 ng/mL
[2018-06-12 23:01] LABS: ALBUMIN 3.6 g/dL (3.0-4.8); CALCIUM 8.9 mg/dL (8.4-10.5)
[2018-06-12 23:09] LABS: BAND 5 % (0-2); LYMPHOCYTE 9 % (22.0-35.0); MONOCYTE 16 % (1.0-6.0); NEUTROPHIL 68 % (50.0-70.0)
[2018-06-12 23:10] LABS: BASOPHIL 1 % (0.0-1.0); EOSINOPHIL 1 % (0.0-3.0); PLATELET ESTIMATE NORMAL (NORMAL)
[2018-06-12] MEDS ORDERED: cefTRIAXone 1 gm 1 GM/100 ML BAG IV STA (23:51)
[2018-06-12] MEDS ORDERED: Potassium Chloride 20 mEq ER Tab PO STA (23:51)
[2018-06-13 00:21] LABS: PH,URINE 6.5 (4.7-8.0); URINE APPEARANCE TURBID (CLEAR); URINE BILIRUBIN NEGATIVE (NEGATIVE); URINE BLOOD MODERATE (NEGATIVE); URINE COLOR YELLOW (YELLOW); URINE GLUCOSE (UA) NEGATIVE (NEGATIVE); URINE LEUKOCYTE ESTERASE LARGE Leu/uL (NEGATIVE); URINE PROTEIN >=300 mg/dL (<30 mg/dL); URINE UROBILINOGEN 0.2 E.U./dL (<1 E.U./dL)
[2018-06-13 00:23] LABS: URINE BACTERIA MANY (NEG); URINE EPITHELIAL CELLS 0 - 2 /hpf (0-5); URINE RBC 0 - 2 /hpf (0-2); URINE WBC 20 - 25 /hpf (0-6)
[2018-06-13] MEDS ORDERED: Sodium Chloride 0.9% 1,000 ML IV STA (00:40)
[2018-06-13 03:36] VITALS: BMI 25.2
--- NOTE | 2018-06-13 09:40 | CT ---
Date of service: 06/12/2018 PROCEDURE: CT HEAD WITHOUT CONTRAST. HISTORY: near syncope COMPARISON: None available. TECHNIQUE: Axial computed tomography images were obtained through the head/brain without intravenous contrast. Radiation dose: Total exam DLP = 841.44 mGy-cm. This CT exam was performed using one or more of the following dose reduction techniques: Automated exposure control, adjustment of the mA and/or kV according to patient size, and/or use of iterative reconstruction technique. FINDINGS: HEMORRHAGE: No intracranial hemorrhage. BRAIN: No mass effect or edema. No atrophy or chronic microvascular ischemic changes. VENTRICLES: Mild atrophy CALVARIUM: Unremarkable. PARANASAL SINUSES: Unremarkable as visualized. No significant inflammatory changes. MASTOID AIR CELLS: Unremarkable as visualized. No inflammatory changes. OTHER FINDINGS: The report concurs with the preliminary [facility] report IMPRESSION: No acute intracranial findings
--- NOTE | 2018-06-13 11:14 | RAD ---
Date of service: 06/12/2018 PROCEDURE: CHEST RADIOGRAPH, 1 VIEW HISTORY: Sepsis Patient COMPARISON: None available. FINDINGS: LUNGS: Clear. PLEURA: No pneumothorax or pleural fluid seen. CARDIOVASCULAR: Normal. OSSEOUS STRUCTURES: No significant abnormalities. VISUALIZED UPPER ABDOMEN: Normal. OTHER FINDINGS: None. IMPRESSION: No active disease.
[2018-06-13 11:35] LABS: ALBUMIN 3.4 g/dL (3.0-4.8); CALCIUM 8.8 mg/dL (8.4-10.5)
[2018-06-13] MEDS: cefTRIAXone 1 gm 1 GM/100 ML BAG IVPB SCH (12:38)
[2018-06-13] MEDS: Sodium Chloride 0.9% 1,000 ML IV SCH (12:39)
--- NOTE | 2018-06-13 14:00 | US ---
PROCEDURE: Bilateral carotid artery duplex ultrasound HISTORY: Carotid stenosis syncope PHYSICIAN(S): Shartah Cosby MD. TECHNIQUE: Duplex sonography and color-flow Doppler were used to evaluate the carotid bifurcations and limited segments of the vertebral arteries bilaterally. FINDINGS: There is mild smooth heterogeneous plaque noted at the carotid bifurcations bilaterally. The peak systolic velocity in the proximal right internal carotid artery is 86 cm/sec. This corresponds to a 20 to 39% proximal right ICA stenosis. Normal systolic velocities are noted in the proximal right external carotid artery. There is antegrade flow in the right vertebral artery. The peak systolic velocity in the proximal left internal carotid artery is 99 cm/sec. This corresponds to a 20 to 39% proximal left ICA stenosis. Normal systolic velocities are noted in the proximal left external carotid artery. There is antegrade flow in the left vertebral artery. IMPRESSION: 1. Bilateral 20-39% proximal ICA stenoses. 2. Antegrade flow in both vertebral arteries.
--- NOTE | 2018-06-13 14:37 | CARD ---
APPROVED REPORT Date of service: 06/12/2018 EKG Measurement Heart [id number] <Conclusion> Normal sinus rhythm Right bundle branch block Abnormal ECG
[2018-06-13 22:04] LABS: HDL CHOLESTEROL 44 mg/dL (29-60)
[2018-06-13 22:15] LABS: LDL CHOLESTEROL 97 mg/dL (0-129)
[2018-06-14 06:52] LABS: ALBUMIN 3.2 g/dL (3.0-4.8); CALCIUM 8.5 mg/dL (8.4-10.5)
[2018-06-14 07:03] LABS: BASO # 0.02 K/mm3 (0.0-2.0); BASO % 0.2 % (0.0-3.0); EOS % 0.4 % (1.5-5.0); GRAN # 6.09 (1.4-6.5); GRAN % 63.1 % (50.0-68.0); HEMOGLOBIN 9.9 g/dL (14.0-18.0); LYMPH # 1.3 (1.2-3.4); MEAN CELL VOLUME 89.7 fl (80.0-105.0); MEAN CORPUSCULAR HEMOGLOBIN 28.4 pg (25.0-35.0); MEAN CORPUSCULAR HGB CONC 31.6 g/dl (31.0-37.0); MEAN PLATELET VOLUME 10.8 fl (7.0-11.0); MONO # 2.3 (0.1-0.6); MONO % 23.3 % (1.0-6.0); RBC 3.49 10^6/uL (3.5-6.1); RED CELL DISTRIBUTION WIDTH 14.1 % (11.5-14.5); WHITE BLOOD COUNT 9.7 10^3/uL (4.5-11.0)
[2018-06-14 07:12] LABS: FREE T4 1.27 ng/dL (0.78-2.19)
[2018-06-14] MEDS: Sodium Chloride 0.9% 1,000 ML IV SCH (08:31)
--- NOTE | 2018-06-14 10:04 | HP ---
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 Patient stated he went for grocery, he was picking up crate of water bottle, then he all of a sudden he felt very weak and his knees gave in and he fell on the floor. His neighbor was walking the dog who came to help and he also rang the dias and came out and they called ambulance and he was brought to emergency room and he was found to have high blood pressure. Patient does states that he felt that his blood pressure is running high. He did not have any chest pain. Did not have any headache. No seizure-like activity. No history of nausea, vomiting or diarrhea. PAST MEDICAL HISTORY: Significant for: 1. CA prostate. 2. Hypertension. 3. History of UTI. 4. History of CA prostate and he is under the care of Emily in [place]. ALLERGIES: HE IS ALLERGIC TO SULFA MEDICATION. MEDICATIONS AT HOME: He is on Flomax 0.4 daily, he is on losartan 100 mg daily, and he was taking Vantin 100 mg twice a day. SOCIAL HISTORY: He denies smoking, drinking, or alcohol use. He is a retired teacher. He is and lives with his . PHYSICAL EXAMINATION: GENERAL: The patient is awake, alert, oriented, and communicative. VITAL SIGNS: Upon admission; his temperature was 101.1, then he remained afebrile, in the afternoon he developed fever again. Pulse 95, respirations 19, and blood pressure upon arrival was 167/99. LUNGS: Bilateral fair airflow. No rhonchi or crackle. HEART: S1 and S2 audible. ABDOMEN: Soft and nontender. Trotter catheter in place draining clear urine. EXTREMITIES: Bilateral legs, no edema. LABORATORY DATA: WBC is 5.5, hemoglobin 10.4, hematocrit 32.1, and platelet of 258. PT 13.2 and INR 1.15. Chemistry: Sodium 140, potassium 3.7, chloride 109, CO2 of 27, BUN 22, creatinine 1.7, and blood sugar of 124. Urine shows large leukocyte esterase, moderate blood. Carotid Doppler was done, it is unremarkable. IMAGING: CT scan of the head is also unremarkable. ASSESSMENT: 1. Status post syncope likely uncontrolled hypertension. 2. Urine retention. 3. Urinary tract infection with pyuria and hematuria upon microscopic exam. 4. History of carcinoma prostate. 5. Hyperlipidemia. PLAN: Initial plan was patient had appointment in [place]. He wanted to follow with his prostate doctor and he wanted to be discharged, although we do not have cultures back and upon his physical therapy evaluation, he was found to be weak, needed further rehab. Initially, the patient wanted to be discharged, but later on when he spiked fever in the afternoon, he decided to stay for one more night. So, plan is we will continue patient on IV antibiotic. We will follow up urine culture and request Dr. Campoverde to evaluate patient. Dr. Westfall already evaluated patient and going to discharge him with Trotter catheter and he states he will follow the patient in office. We will start the patient on losartan, I will add hydrochlorothiazide, keep him on Flomax, and then we will follow up his CBC, CMP, thyroid, and lipid profile in a.m. Emanuel Ash MD
[2018-06-14] MEDS ORDERED: cefTRIAXone 1 gm 1 GM/100 ML BAG IVPB SCH (12:15)
[2018-06-14] MEDS: cefTRIAXone 1 gm 1 GM/100 ML BAG IVPB SCH (12:56)
[2018-06-14] MEDS: Meropenem IV 1 gm in NS 1 GM/50 ML BAG IVPB SCH ×2 (15:32→21:56)
--- NOTE | 2018-06-14 16:32 | PCM.URO ---
Urology Progress Note - Objective Lab Studies: Reviewed (gu dx: retention gu plans : see dictated notes as well maintain [place]wood and flomax trial of void to follow either as in pt or out pt) Lab Results Last 24 Hours: Laboratory Results - last 24 hr 06/12/18 06/13/18 06/14/18 21:25 11:15 06:00 WBC RBC Hgb Hct MCV MCH MCHC RDW Plt Count MPV Gran % Lymph % (Auto) [place] % (Auto) Eos % (Auto) Baso % (Auto) Gran # Lymph # (Auto) [place] # (Auto) Eos # (Auto) Baso # (Auto) pO2 45 VBG pH 7.40 VBG pCO2 42.0 VBG HCO3 26.0 VBG Total CO2 27.3 VBG O2 Sat (Calc) 83.9 H VBG Base Excess 1.0 VBG Potassium 3.4 L Sodium 138.0 140 Chloride 104.0 103 Glucose 137 H Lactate 1.6 FiO2 21.0 Potassium 3.1 L Carbon Dioxide 29 Anion Gap 11 BUN 18 Creatinine 1.6 H Est GFR ( Amer) 52 Est GFR (Non-Af Amer) 43 Random Glucose 116 H Calcium 8.5 Magnesium 1.8 Total Bilirubin 0.5 AST 28 ALT 21 Alkaline Phosphatase 78 Total Protein 6.4 Albumin 3.2 Globulin 3.3 Albumin/Globulin Ratio 1.0 L Triglycerides 59 Cholesterol 170 LDL Cholesterol Direct 97 HDL Cholesterol 44 Prostate Specific Ag Free T4 TSH 3rd Generation Venous Blood Potassium 3.4 L 06/14/18 06/14/18 06:00 06:00 WBC 9.7 D RBC 3.49 L Hgb 9.9 L Hct 31.3 L MCV 89.7 MCH 28.4 MCHC 31.6 RDW 14.1 Plt Count 245 MPV 10.8 Gran % 63.1 Lymph % (Auto) 13.0 L [place] % (Auto) 23.3 H Eos % (Auto) 0.4 L Baso % (Auto) 0.2 Gran # 6.09 Lymph # (Auto) 1.3 [place] # (Auto) 2.3 H Eos # (Auto) 0.0 Baso # (Auto) 0.02 pO2 VBG pH VBG pCO2 VBG HCO3 VBG Total CO2 VBG O2 Sat (Calc) VBG Base Excess VBG Potassium Sodium Chloride Glucose Lactate FiO2 Potassium Carbon Dioxide Anion Gap BUN Creatinine Est GFR ( Amer) Est GFR (Non-Af Amer) Random Glucose Calcium Magnesium Total Bilirubin AST ALT Alkaline Phosphatase Total Protein Albumin Globulin Albumin/Globulin Ratio Triglycerides Cholesterol LDL Cholesterol Direct HDL Cholesterol Prostate Specific Ag 2.4 Free T4 1.27 TSH 3rd Generation 2.47 Venous Blood Potassium Intake & Output: Intake & Output 06/13/18 06/14/18 06/14/18 18:59 06:59 18:59 Intake Total 640 2100 Output Total 800 Balance 640 1300 Weight 170 lb 8 oz 168 lb 1.6 oz Intake: IV 640 Left Antecubital 640 Oral 2100 Output: Urine 800 Urethral ([place]) 800 Other: # Bowel Movements 0 Vital Signs: Vital Signs - 24 hr 06/13/18 06/13/18 06/14/18 18:00 22:00 00:01 Temperature 100.2 F H 101.9 F H Pulse Rate 97 H 90 Respiratory 18 20 Rate Blood Pressure 170/100 H 147/80 146/89 O2 Sat by Pulse 96 96 Oximetry 06/14/18 06/14/18 06/14/18 01:30 05:35 06:00 Temperature 101.9 F H 98.9 F Pulse Rate 93 H 78 Respiratory 20 Rate Blood Pressure 133/86 O2 Sat by Pulse 98 Oximetry 06/14/18 06/14/18 06/14/18 07:43 10:00 12:00 Temperature 98.6 F 98.3 F Pulse Rate 88 88 87 Respiratory 18 18 Rate Blood Pressure 132/68 116/90 O2 Sat by Pulse Oximetry
--- NOTE | 2018-06-14 22:49 | PN ---
DATE: 06/14/2018 SUBJECTIVE: The patient is 72 years old, seems to be doing a little better. No chest pain. No shortness of breath. No nausea, vomiting. Has unstable gait. Needs more on gait training and strengthening. PHYSICAL EXAMINATION VITAL SIGNS: He has spiked fever of 100.2 yesterday and this morning was 99.3, pulse 77, respirations 18, and blood pressure 156/88. LUNGS: Bilateral fair airflow. No rhonchi or crackles. HEART: S1 and S2, audible. ABDOMEN: Soft and nontender. No rebound. No guarding. NEUROLOGIC: The patient is awake and alert, able to communicate. EXTREMITIES: Bilateral legs, no edema. LABORATORY DATA: His urine is positive for gram-negative rods, also his blood culture positive for gram-negative rods, sensitivity to follow. ASSESSMENT: 1. Status post near syncope. 2. Gram-negative sepsis, probably Escherichia coli. 4. Hypertension. 5. Hyperlipidemia. 6. History of carcinoma of prostrate. PLAN: Currently, the patient is on Rocephin, we will continue that. We will follow up sensitivity. We will get input from ID if we need to maintain him on Rocephin and I will also request for TCU evaluation. I will discontinue IV fluid since the patient's oral intake seems to be fair. We will maintain him on losartan, Flomax, meropenem, and discontinue IV fluids. The patient will be transferred to TCU if he is agreeable. Emanuel Ash MD
[2018-06-15 07:22] LABS: ALB/GLOB RATIO 0.9 (1.1-1.8); ALBUMIN 3.1 g/dL (3.0-4.8); CALCIUM 8.7 mg/dL (8.4-10.5)
[2018-06-15] MEDS: Meropenem IV 1 gm in NS 1 GM/50 ML BAG IVPB SCH ×2 (09:05→21:40)
[2018-06-15] MEDS: Potassium Chloride 20 mEq ER Tab PO SCH (10:32)
--- NOTE | 2018-06-15 12:24 | CP.PCM.CON ---
History of Present Illness - History of Present Illness History of Present Illness: 72 year old male with PMH of prostate cancer S/P radiation therapy, HTN, history of UTI [place] [facility] [place] he felt like his legs were going to give way and he was going to fall. He also had generalized weakness and felt a little cold. He denies having fevers at home but was noted to have fevers on admission. He was also having urinary retention. He denies headache, no chest pain, no SOB, no cough or rhinorrhea, no abdominal pain, no diarrhea, no dysphagia, no sore throat. Work up done showed the patient having bacteria in the blood as well as in the urine. A Trotter catheter has been placed on this admission. Infectious Diseases consult is requested to further evaluate and manage. Review of Systems - Review of Systems All systems: reviewed and no additional remarkable complaints except (as per HPI) Past Patient History - Infectious Disease Hx of Infectious Diseases: None - Past Social History Smoking Status: Smoker Currrent Status Unknown - CARDIAC Hx Cardiac Disorders: Yes Hx Hypertension: Yes - PULMONARY Hx Respiratory Disorders: No - NEUROLOGICAL Hx Neurological Disorder: No - HEENT Hx HEENT Problems: No - RENAL Hx Chronic Kidney Disease: No - ENDOCRINE/METABOLIC Hx Endocrine Disorders: No - HEMATOLOGICAL/ONCOLOGICAL Hx Blood Disorders: No - INTEGUMENTARY Hx Dermatological Problems: No - MUSCULOSKELETAL/RHEUMATOLOGICAL Hx Musculoskeletal Disorders: No Hx Falls: Yes (06/12/18) - GASTROINTESTINAL Hx Gastrointestinal Disorders: No - GENITOURINARY/GYNECOLOGICAL Hx Prostate Problems: Yes (enlarged) Other/Comment: Prostate CA, Brachy therapy - PSYCHIATRIC Hx Psychophysiologic Disorder: No Hx Emotional Abuse: No Hx Physical Abuse: No Hx Substance Use: No - SURGICAL HISTORY Other/Comment: biopsy of prostate - ANESTHESIA Hx Anesthesia: Yes Hx Anesthesia Reactions: No Hx Malignant Hyperthermia: No Meds Allergies/Adverse Reactions: Allergies Allergy/AdvReac Type Severity Reaction Status Date / Time Sulfa (Sulfonamide Allergy RASH Verified 05/15/18 22:50 Antibiotics) - Medications Medications: Current Medications Acetaminophen (Tylenol 325mg Tab) 650 mg PO Q6H PRN PRN Reason: Fever >100.5 F Last Admin: 06/14/18 01:30 Dose: 650 mg Clonidine HCl (Catapres) 0.1 mg PO Q6 PRN PRN Reason: Systolic Blood Pressure Hydrochlorothiazide (Hydrodiuril) 25 mg PO DAILY TAMARA Last Admin: 06/14/18 12:53 Dose: 25 mg Meropenem (Merrem Iv 1 Gm Premix) 1 gm in 50 mls @ 100 mls/hr IVPB Q12 [facility]; Protocol Last Admin: 06/14/18 21:56 Dose: 100 mls/hr Losartan Potassium (Cozaar) 100 mg PO DAILY [facility] Last Admin: 06/14/18 12:53 Dose: 100 mg Tamsulosin HCl (Flomax) 0.4 mg PO DAILY [facility] Last Admin: 06/14/18 12:53 Dose: 0.4 mg Physical Exam - Constitutional Appears: Chronically Ill - Head Exam Head Exam: NORMAL INSPECTION - Neck Exam Neck exam: Negative for: Meningismus - Respiratory Exam Respiratory Exam: Decreased Breath Sounds - Cardiovascular Exam Cardiovascular Exam: +S1, +S2 - GI/Abdominal Exam GI & Abdominal Exam: Soft. absent: Tenderness Results - Vital Signs Recent Vital Signs: Last Vital Signs Temp 99.5 F 06/15/18 00:01 Pulse 78 06/15/18 00:01 Resp 20 06/15/18 00:01 BP 141/87 06/15/18 00:01 Pulse Ox 95 06/15/18 00:01 - Labs Result Diagrams: 06/14/18 06:00 06/15/18 06:30 Labs: Laboratory Results - last 24 hr 06/14/18 06/14/18 06/14/18 06:00 06:00 06:00 WBC 9.7 D RBC 3.49 L Hgb 9.9 L Hct 31.3 L MCV 89.7 MCH 28.4 MCHC 31.6 RDW 14.1 Plt Count 245 MPV 10.8 Gran % 63.1 Lymph % (Auto) 13.0 L [place] % (Auto) 23.3 H Eos % (Auto) 0.4 L Baso % (Auto) 0.2 Gran # 6.09 Lymph # (Auto) 1.3 [place] # (Auto) 2.3 H Eos # (Auto) 0.0 Baso # (Auto) 0.02 Sodium 140 Potassium 3.1 L Chloride 103 Carbon Dioxide 29 Anion Gap 11 BUN 18 Creatinine 1.6 H Est GFR ( Amer) 52 Est GFR (Non-Af Amer) 43 Random Glucose 116 H Calcium 8.5 Magnesium 1.8 Total Bilirubin 0.5 AST 28 ALT 21 Alkaline Phosphatase 78 Total Protein 6.4 Albumin 3.2 Globulin 3.3 Albumin/Globulin Ratio 1.0 L Prostate Specific Ag 2.4 Free T4 1.27 TSH 3rd Generation 2.47 Assessment & Plan - Assessment and Plan (Free Text) Plan: Assessment Sepsis due to E. coli bacteremia from UTI with probable pyelonephritis in this patient with urinary retention, with prostate CA prostate cancer S/P radiation therapy HTN history of UTI Plan Started patient on Merrem pending sensitivities of the E. coli in the blood and urine - will need 10-14 days of antibiotics follow up further plans of Urology PSA is only 2.4
--- NOTE | 2018-06-15 15:37 | PN ---
DATE: 06/15/2018 SUBJECTIVE: The patient is 72 years old, came to the emergency room after he has episode of syncope, was found to have Gram-negative sepsis along with urosepsis, seems to be doing better. PHYSICAL EXAMINATION: GENERAL: He is awake, alert, oriented, communicative. VITAL SIGNS: He is afebrile, pulse 77, respiration 20, blood pressure 152/90. LUNGS: Bilateral fair airflow. No rhonchi or crackle. HEART: S1 and S2 audible. ABDOMEN: Soft, nontender. No rebound. No guarding. NEUROLOGICAL: He is awake, alert, oriented, able to communicate, ambulatory. EXTREMITIES: Bilateral legs has no edema. LABORATORY EXAM: WBC is 9.7, hemoglobin 9.9, hematocrit 31.3 and platelets 245. Chemistry: Sodium 140, potassium 3.3, chloride 100, CO2 32, BUN 19, creatinine 1.5, blood sugar of 109. His urine is growing Pseudomonas aeruginosa, blood is positive for Enterobacter cloacae and Gram-negative rods. ASSESSMENT: 1. Probably urosepsis. 2. History of cancer of the prostate. 3. Hypertension. 4. Mild renal insufficiency seems to be improving. 5. Chronic anemia. 6. Hypokalemia. PLAN: We will keep the patient on losartan 100 daily. He is on Flomax, hydrochlorothiazide. We will give him a dose of IV potassium plus p.o. He has been started on meropenem every 12 hours. TCU evaluation is requested. Once he meet the criteria to be transferred, he will be transferred to TCU. Emanuel Ash MD
[2018-06-16] MEDS ORDERED: Barium Sulfate Susp 2.1% w/v, 2.0% w/w 450 mL Bottle PO ONE (09:03)
[2018-06-16] MEDS: Potassium Chloride 20 mEq ER Tab PO SCH (11:36)
[2018-06-16] MEDS: Meropenem IV 1 gm in NS 1 GM/50 ML BAG IVPB SCH ×2 (11:36→21:28)
--- NOTE | 2018-06-16 12:06 | CP.PCM.PN ---
Subjective - Date & Time of Evaluation Date of Evaluation: 06/16/18 Time of Evaluation: 09:50 - Subjective Subjective: No abdominal pain, currently no dysuria, no fevers, not in distress. Objective - Vital Signs/Intake and Output Vital Signs (last 24 hours): Temp Pulse Resp BP Pulse Ox 97.7 F 77 20 152/90 H 97 06/15/18 06:00 06/15/18 06:00 06/15/18 06:00 06/15/18 06:00 06/15/18 06:00 Intake and Output: 06/15/18 06/15/18 06:59 18:59 Intake Total 1610 50 Output Total 3700 Balance -2090 50 - Medications Medications: Current Medications Acetaminophen (Tylenol 325mg Tab) 650 mg PO Q6H PRN PRN Reason: Fever >100.5 F Last Admin: 06/14/18 01:30 Dose: 650 mg Acetaminophen (Tylenol 325mg Tab) 650 mg PO Q6H PRN PRN Reason: Pain, Mild (1-3) Last Admin: 06/15/18 10:35 Dose: 650 mg Clonidine HCl (Catapres) 0.1 mg PO Q6 PRN PRN Reason: Systolic Blood Pressure Hydrochlorothiazide (Hydrodiuril) 25 mg PO DAILY [facility] Last Admin: 06/15/18 09:05 Dose: 25 mg Meropenem (Merrem Iv 1 Gm Premix) 1 gm in 50 mls @ 100 mls/hr IVPB Q12 [facility]; Protocol Last Admin: 06/15/18 09:05 Dose: 100 mls/hr Potassium Chloride (Potassium Chloride 10 Meq/100 Ml) 10 meq in 100 mls @ 50 mls/hr IVPB ONCE ONE Stop: 06/15/18 13:42 Losartan Potassium (Cozaar) 100 mg PO DAILY [facility] Last Admin: 06/15/18 09:05 Dose: 100 mg Potassium Chloride (K-Dur 20 Meq Er Tab) 20 meq PO BRK [facility] Last Admin: 06/15/18 10:32 Dose: 20 meq Tamsulosin HCl (Flomax) 0.4 mg PO DAILY [facility] Last Admin: 06/15/18 09:05 Dose: 0.4 mg - Labs Labs: 06/14/18 06:00 06/15/18 06:30 PT 13.2 SECONDS (9.4-12.5) H 06/12/18 21:25 INR 1.15 06/12/18 21:25 APTT 31.0 Seconds (25.1-36.5) 06/12/18 21:25 - Constitutional Appears: Chronically Ill - Head Exam Head Exam: NORMAL INSPECTION - Neck Exam Neck Exam: absent: Meningismus - Respiratory Exam Respiratory Exam: Decreased Breath Sounds - Cardiovascular Exam Cardiovascular Exam: +S1, +S2 - GI/Abdominal Exam GI & Abdominal Exam: Soft. absent: Tenderness Assessment and Plan - Assessment and Plan (Free Text) Plan: Assessment Sepsis due to Enterobacter bacteremia as well as Pseudomonas UTI with probable pyelonephritis in this patient with urinary retention, with prostate CA, need to rule out intra-abdominal infection prostate cancer S/P radiation therapy HTN history of UTI Plan continue Merrem day 2 and will follow up repeat blood cx and will check 2D echo; will get CT A/P as well - will need 10-14 days of antibiotics - discussed with patient and he understands follow up further plans of Urology PSA is only 2.[address] Ash
--- NOTE | 2018-06-16 12:19 | PN ---
DATE: 06/16/2018 SUBJECTIVE: The patient is 72 years old, seen and examined, getting echocardiogram, empirically negative for endocarditis, doing well. PHYSICAL EXAMINATION: VITAL SIGNS: He is afebrile, pulse 87, respirations 20, blood pressure 145/67. LUNGS: Bilateral fair airflow. No rhonchi or crackle. HEART: S1 and S2 audible. No gallop. No murmur appreciated. ABDOMEN: Soft. Nontender. No rebound. No guarding. No hepatosplenomegaly. NEUROLOGICAL: He is awake, alert, oriented. Moves all extremity. No sensorimotor deficit. EXTREMITIES: Bilateral leg, no edema. No rashes. No varicose vein. LABORATORY EXAM: Today's potassium is 4.1. His blood culture is growing Enterobacter cloacae and Enterobacter and urine is growing Pseudomonas aeruginosa. ASSESSMENT: 1. Urosepsis. 2. Enterobacter cloacae bacteremia. 3. Pseudomonas aeruginosa urinary tract infection. 4. History of cancer of prostate. 5. Electrolyte imbalance. 6. Chronic anemia. PLAN: Currently, the patient is getting echocardiogram. Seems to be negative for endocarditis. No vegetation appreciated. The patient is scheduled to have CT of the abdomen and pelvis done today. He will continue on meropenem. He needs total of 14 days. So arrangement will be made for PICC line and either possible home infusion or he will be transferred to TCU to complete his course of antibiotic and . Emanuel Ash MD
--- NOTE | 2018-06-16 14:44 | CT ---
Date of service: 06/16/2018 PROCEDURE: CT Abdomen and Pelvis without intravenous contrast HISTORY: rule out intra-abdominal infection COMPARISON: None. TECHNIQUE: Without contrast. Contrast dose: Radiation dose: Total exam DLP = 459.2 mGy-cm. This CT exam was performed using one or more of the following dose reduction techniques: Automated exposure control, adjustment of the mA and/or kV according to patient size, and/or use of iterative reconstruction technique. FINDINGS: LOWER THORAX: Unremarkable. LIVER: Unremarkable. No gross lesion or ductal dilatation. GALLBLADDER AND BILE DUCTS: Unremarkable. PANCREAS: Unremarkable. No gross lesion or ductal dilatation. SPLEEN: Unremarkable. ADRENALS: Unremarkable. No mass. KIDNEYS AND URETERS: Unremarkable. No hydronephrosis. No solid mass. VASCULATURE: Unremarkable. No aortic aneurysm. No aortic atherosclerotic calcification or mural plaque present. BOWEL: There is a left inguinal hernia containing a loop of small bowel. There is no evidence of obstruction or inflammation. The hernia measures 4 x 5 cm. Moderate constipation APPENDIX: Unremarkable. Normal appendix. PERITONEUM: Unremarkable. No free fluid. No free air. LYMPH NODES: Unremarkable. No enlarged lymph nodes. BLADDER: There is a Trotter catheter in the bladder. There is mural thickening. The bladder is decompressed REPRODUCTIVE: Prostate is enlarged and contains multiple radiation implant seeds. BONES: No acute fracture. OTHER FINDINGS: None. IMPRESSION: No acute intra-abdominal findings. No evidence of abscess or infection
--- NOTE | 2018-06-16 19:32 | CARD ---
APPROVED REPORT Date of service: 06/16/2018 EXAM: Two-dimensional and M-mode echocardiogram with Doppler and color Doppler. INDICATION Infection:Rule out subacute bacterial endocarditis 2D DIMENSIONS Left Atrium (2D)3.6 (1.6-4.0cm)IVSd1.2 (0.7-1.1cm) LVDd3.4 (3.9-5.9cm)PWd1.1 (0.7-1.1cm) LVDs2.4 (2.5-4.0cm)FS (%) 29.3 % LVEF (%)57.3 (>50%) M-Mode DIMENSIONS Aortic Root0.90 (2.2-3.7cm) Aortic Valve AoV Peak Zikzdslf385.0cm/Sujit Peak GR.7mmHg Mitral Valve MV E Jizgdajw24.4cm/sMV A Ghjfmibq34.0cm/sE/A ratio0.7 TDI E/Lateral E'0.0E/Medial E'0.0 Tricuspid Valve TR Peak Qkcpnece273oi/sRAP QIWGXLXF53gkXxXO Peak Gr.13mmHg [id number] LEFT VENTRICLE The left ventricle is normal size. LV Septum shows mild Hypertrophy. The left ventricular function is normal. The left ventricular ejection fraction is within the normal range. Ej.Fr: 57%. Tissue Doppler imaging reveals moderate left ventricular diastolic dysfunction. RIGHT VENTRICLE The right ventricle is normal size. The right ventricular systolic function is normal. ATRIA The left atrium size is normal. The right atrium size is normal. AORTIC VALVE Aortic Valve Calcified and Shows Mild Aortic Stenosis. MITRAL VALVE Mitral Valve opening Normal. Mitral Annulus heavily Calcified. Mitral regurgitation is trace. TRICUSPID VALVE The tricuspid valve is normal in structure. There is trace tricuspid regurgitation. PERICARDIAL EFFUSION There is no pericardial effusion. <Conclusion> The left ventricle is normal size. LV Septum shows mild Hypertrophy. The left ventricular function is normal. The left ventricular ejection fraction is within the normal range. Ej.Fr: 57%. Tissue Doppler imaging reveals moderate left ventricular diastolic dysfunction. The right ventricle is normal size. The right ventricular systolic function is normal. The left atrium size is normal. The right atrium size is normal. Aortic Valve Calcified and Shows Mild Aortic Stenosis. Mitral Valve opening Normal. Mitral Annulus heavily Calcified. Mitral regurgitation is trace. The tricuspid valve is normal in structure. There is trace tricuspid regurgitation. There is no pericardial effusion.
[2018-06-17] MEDS: Potassium Chloride 20 mEq ER Tab PO SCH (10:18)
[2018-06-17] MEDS: Meropenem IV 1 gm in NS 1 GM/50 ML BAG IVPB SCH ×2 (10:19→21:35)
--- NOTE | 2018-06-17 12:44 | CP.PCM.PN ---
Subjective - Date & Time of Evaluation Date of Evaluation: 06/17/18 Time of Evaluation: 10:50 - Subjective Subjective: Comfortable in bed, tolerating antibiotic infusion, no nausea or vomiting, no more fevers. Objective - Vital Signs/Intake and Output Vital Signs (last 24 hours): Temp Pulse Resp BP Pulse Ox 98.6 F 87 20 145/67 98 06/16/18 12:00 06/16/18 12:00 06/16/18 12:00 06/16/18 12:00 06/16/18 06:00 Intake and Output: 06/16/18 06/16/18 06:59 18:59 Intake Total 970 Output Total 1800 Balance -830 - Medications Medications: Current Medications Acetaminophen (Tylenol 325mg Tab) 650 mg PO Q6H PRN PRN Reason: Fever >100.5 F Last Admin: 06/14/18 01:30 Dose: 650 mg Acetaminophen (Tylenol 325mg Tab) 650 mg PO Q6H PRN PRN Reason: Pain, Mild (1-3) Last Admin: 06/15/18 10:35 Dose: 650 mg Clonidine HCl (Catapres) 0.1 mg PO Q6 PRN PRN Reason: Systolic Blood Pressure Hydrochlorothiazide (Hydrodiuril) 25 mg PO DAILY [facility] Last Admin: 06/16/18 11:36 Dose: 25 mg Meropenem (Merrem Iv 1 Gm Premix) 1 gm in 50 mls @ 100 mls/hr IVPB Q12 [facility]; Protocol Last Admin: 06/16/18 11:36 Dose: 100 mls/hr Losartan Potassium (Cozaar) 100 mg PO DAILY [facility] Last Admin: 06/16/18 11:35 Dose: 100 mg Potassium Chloride (K-Dur 20 Meq Er Tab) 20 meq PO BRK [facility] Last Admin: 06/16/18 11:36 Dose: 20 meq Tamsulosin HCl (Flomax) 0.4 mg PO DAILY [facility] Last Admin: 06/16/18 11:38 Dose: 0.4 mg - Labs Labs: 06/14/18 06:00 06/16/18 06:00 PT 13.2 SECONDS (9.4-12.5) H 06/12/18 21:25 INR 1.15 06/12/18 21:25 APTT 31.0 Seconds (25.1-36.5) 06/12/18 21:25 - Constitutional Appears: Chronically Ill - Head Exam Head Exam: NORMAL INSPECTION - Respiratory Exam Respiratory Exam: Decreased Breath Sounds - Cardiovascular Exam Cardiovascular Exam: +S1, +S2 - GI/Abdominal Exam GI & Abdominal Exam: absent: Tenderness Assessment and Plan - Assessment and Plan (Free Text) Plan: Assessment Sepsis due to Enterobacter bacteremia as well as Pseudomonas UTI with probable pyelonephritis in this patient with urinary retention, with prostate CA, need to rule out intra-abdominal infection prostate cancer S/P radiation therapy HTN history of UTI Plan continue Merrem day 3 and will follow up repeat blood cx; 2D echo does not show specific vegetations; follow up CT A/P as well - will need 10-14 days of antibiotics - discussed with patient and he understands follow up further plans of Urology PSA is only 2.[address] Ash previously
--- NOTE | 2018-06-17 15:09 | PN ---
DATE: 06/17/2018 SUBJECTIVE: The patient is a 72-year-old, seen and examined, sitting in chair, seems to be comfortable. No chest pain, no shortness of breath. No nausea, vomiting. No diarrhea. PHYSICAL EXAMINATION: VITAL SIGNS: The patient is afebrile, pulse 74, respirations 20, blood pressure 140/80. LUNGS: Bilateral fair airflow. No rhonchi or crackle. HEART: S1, S2 audible. ABDOMEN: Soft, nontender. No rebound, no guarding. NEUROLOGICAL: The patient is awake, alert, oriented, communicative. LABORATORY DATA: His repeat blood cultures on 06/16/2018 are negative; however, urine is growing pseudomonas and both blood cultures positive for Enterobacter cloacae. He had CT scan of the abdomen and pelvis done that shows no acute intraabdominal abnormality, no evidence of abscess or infection. Echocardiogram is negative for vegetation. Left ventricle is normal in size, LV septum shows mild hypertrophy, ejection fraction is 57%, tricuspid valve is normal, mitral regurgitation is trace, no pericardial effusion noted. ASSESSMENT: 1. Enterobacter cloacae bacteremia, source unknown. 2. History of cancer of prostate. 3. Hypertension. PLAN: Currently, the patient is on meropenem that he needs to complete course of 14 days. The patient was admitted on 06/13 and today is day 5, he needs 14 days. The patient will be transferred to TCU tomorrow where he will finish his course of meropenem 1 g every 12 hours and we will follow up the patient in a.m. Emanuel Ash MD
[2018-06-18] MEDS: Potassium Chloride 20 mEq ER Tab PO SCH (09:11)
[2018-06-18] MEDS: Meropenem IV 1 gm in NS 1 GM/50 ML BAG IVPB SCH (09:12)
[2018-06-18 09:13] VITALS: RESP 20; O2SAT 99
[2018-06-18] MEDS ORDERED: MethylPREDNISolone Depo 40 mg/ml Inj IM ONE (13:26)
[2018-06-18] MEDS ORDERED: Bupivacaine 0.5% Inj(30mL) IJ ONE (13:26)
[2018-06-18 14:22] LABS: URIC ACID 5.9 mg/dL (3.5-8.5)
[2018-06-18 14:37] VITALS: BP 116/64; PULSE 84; TEMP 97.4
--- NOTE | 2018-06-18 14:58 | CP.PCM.PN ---
Subjective - Date & Time of Evaluation Date of Evaluation: 06/18/18 Time of Evaluation: 12:55 - Subjective Subjective: Comfortable, no nausea, no fevers. Objective - Vital Signs/Intake and Output Vital Signs (last 24 hours): Temp Pulse Resp BP Pulse Ox 98.1 F 74 20 140/80 99 06/17/18 06:00 06/17/18 06:00 06/17/18 06:00 06/17/18 06:00 06/17/18 06:00 Intake and Output: 06/17/18 06/17/18 06:59 18:59 Intake Total 120 Balance 120 - Medications Medications: Current Medications Acetaminophen (Tylenol 325mg Tab) 650 mg PO Q6H PRN PRN Reason: Fever >100.5 F Last Admin: 06/14/18 01:30 Dose: 650 mg Acetaminophen (Tylenol 325mg Tab) 650 mg PO Q6H PRN PRN Reason: Pain, Mild (1-3) Last Admin: 06/15/18 10:35 Dose: 650 mg Clonidine HCl (Catapres) 0.1 mg PO Q6 PRN PRN Reason: Systolic Blood Pressure Hydrochlorothiazide (Hydrodiuril) 25 mg PO DAILY [facility] Last Admin: 06/17/18 10:19 Dose: 25 mg Meropenem (Merrem Iv 1 Gm Premix) 1 gm in 50 mls @ 100 mls/hr IVPB Q12 [facility]AMARA; P rotocol Last Admin: 06/17/18 10:19 Dose: 100 mls/hr Losartan Potassium (Cozaar) 100 mg PO DAILY [facility] Last Admin: 06/17/18 10:19 Dose: 100 mg Potassium Chloride (K-Dur 20 Meq Er Tab) 20 meq PO BRK [facility] Last Admin: 06/17/18 10:18 Dose: 20 meq Tamsulosin HCl (Flomax) 0.4 mg PO DAILY [facility] Last Admin: 06/17/18 10:19 Dose: 0.4 mg - Labs Labs: 06/14/18 06:00 06/16/18 06:00 PT 13.2 SECONDS (9.4-12.5) H 06/12/18 21:25 INR 1.15 06/12/18 21:25 APTT 31.0 Seconds (25.1-36.5) 06/12/18 21:25 - Constitutional Appears: Chronically Ill - Head Exam Head Exam: NORMAL INSPECTION - Neck Exam Neck Exam: absent: Meningismus - Respiratory Exam Respiratory Exam: Decreased Breath Sounds - Cardiovascular Exam Cardiovascular Exam: +S1, +S2 - GI/Abdominal Exam GI & Abdominal Exam: Soft. absent: Tenderness Assessment and Plan - Assessment and Plan (Free Text) Plan: Assessment Sepsis due to Enterobacter bacteremia as well as Pseudomonas UTI with probable pyelonephritis in this patient with urinary retention, with prostate CA, need to rule out intra-abdominal infection prostate cancer S/P radiation therapy HTN history of UTI Plan continue Merrem day 4 and will follow up repeat blood cx; 2D echo does not show specific vegetations; follow up CT A/P as well - will need 10-14 days of antibiotics - discussed with patient and he understands follow up further plans of Urology PSA is only 2.[address] Ash previously
--- NOTE | 2018-06-18 15:37 | RAD ---
Date of service: 06/18/2018 PROCEDURE: Pain HISTORY: pain COMPARISON: No prior. FINDINGS: BONES: Bone alignment and mineralization are normal. There is no acute displaced fracture or bone destruction. JOINTS: There is moderate degenerative osteoarthrosis in the acromioclavicular joint with reduced joint space, subarticular cystic changes and hyperostosis. The glenohumeral joint is normal. SOFT TISSUES: Normal. OTHER FINDINGS: None. IMPRESSION: No acute displaced fracture or dislocation. Moderate degenerative osteoarthrosis in the acromioclavicular joint.
--- NOTE | 2018-06-18 21:45 | CON ---
DATE: 06/18/2018 HISTORY OF PRESENT ILLNESS: The patient is a 72-year-old male with left shoulder pain for about two weeks. He has past history of high blood pressure and UTI. He complains that he cannot move his shoulder because of discomfort, cannot abduct to 60 degrees in gentle rotation, does not look like a septic shoulder, it is more like bursitis and capsulitis and subacromial impingement. We are going to order an x-ray of the left shoulder in the meantime to help his pain. We will give him Depo-Medrol and Marcaine injection to left nondominant shoulder. This way he did participate in physical therapy better with pain. I am going to wait for the x-ray to come back and I have also ordered sed rate, uric acid, and CRP that he managed to monitor treating Mr. Corby Dial for left shoulder pain, suspect bursitis .of the shoulder left.. Eriberto Adorno, CATR[place]O
--- NOTE | 2018-06-19 02:49 | DS ---
The patient is 72 years old, seen and examined, sitting in chair, seems to be comfortable, complaining of left shoulder pain. He states he cannot lift his left arm. Denies any trauma, otherwise feeling well. PHYSICAL EXAMINATION: VITAL SIGNS: He is afebrile, pulse 73, respirations 20, blood pressure 132/80. LUNGS: Bilateral fair airflow. No rhonchi or crackle. HEART: S1 and S2 audible. ABDOMEN: Soft, nontender. No rebound, no guarding. NEUROLOGIC: The patient is awake, alert, oriented, communicative. LABORATORY EXAMINATION: Potassium is 4.1. ASSESSMENT: 1. Status post bacteremia. 2. Pseudomonas aeruginosa urinary tract infection. 3. Enterobacter cloacae bacteremia. 4. History of carcinoma of prostate. 5. Hypertension. 6. Left shoulder sprain. PLAN: I will order for x-ray of left shoulder and I will request Dr. Adorno to evaluate the patient. We will antibiotics as recommended by ID and the patient will be transferred to TCU to complete his course of antibiotic and will receive physical therapy while he is there. Emanuel Ash MD
== END 2018-06-18 17:17 | DRG 872 ==
LOC: ED 20:57 → ERH 06-13 00:39 → 2RSO 06-13 01:54 → OBSVTOIN 06-14 15:01 → 5RSO 06-16 13:37
PROVIDERS: ADMIT Internal Medicine; ATTEND Internal Medicine
DX: A41.59 Other Gram-negative sepsis (principal); N12 Tubulo-interstitial nephritis, not specified as acute or chronic; I10 Essential (primary) hypertension; S43.402A Unspecified sprain of left shoulder joint, initial encounter; W18.30XA Fall on same level, unspecified, initial encounter; E87.6 Hypokalemia; E78.5 Hyperlipidemia, unspecified; B96.5 Pseudomonas (aeruginosa) (mallei) (pseudomallei) as the cause of diseases classified elsewhere; R31.29 Other microscopic hematuria; D64.9 Anemia, unspecified; R55 Syncope and collapse; Y92.512 Supermarket, store or market as the place of occurrence of the external cause; Z87.440 Personal history of urinary (tract) infections; Z85.46 Personal history of malignant neoplasm of prostate; Z92.3 Personal history of irradiation

== ENCOUNTER 2018-06-18 17:17 | Inpatient (IN) | payer MEDICARE ==
[2018-06-18 18:27] VITALS: BMI 23.9
[2018-06-18] MEDS: Meropenem IV 1 gm in NS 1 GM/50 ML BAG IVPB SCH (21:38)
[2018-06-19] MEDS: Meropenem IV 1 gm in NS 1 GM/50 ML BAG IVPB SCH ×2 (05:59→17:30)
[2018-06-19] MEDS: Potassium Chloride 20 mEq ER Tab PO SCH (08:24)
--- NOTE | 2018-06-19 11:23 | CP.PCM.CON ---
History of Present Illness - History of Present Illness History of Present Illness: 72 year old male with PMH of prostate cancer S/P radiation therapy, HTN, history of UTI [place] [facility] [place] of generalized weakness and felt like he was about to fall, associated with some chills and fever. He was found to have sepsis with Enterobacter bacteremia as well as Pseudomonas UTI and has been on antibiotics with clinical improvement. He is now transferred to [facility] for continued medical therapy and physical rehab. Infectious Diseases consult is requested to continue his antibiotic management. He denies fever or chills, no nausea or vomiting, no chest pain, no SOB, no headache or dizziness, no abdominal pain, no diarrhea, no dysuria, no cough or colds, no dysphagia, and the patient is feeling much better. Review of Systems - Review of Systems All systems: reviewed and no additional remarkable complaints except (as per HPI) Past Patient History - Infectious Disease Hx of Infectious Diseases: None - Past Social History Smoking Status: Smoker Currrent Status Unknown - CARDIAC Hx Pacemaker: No - PULMONARY Hx Respiratory Disorders: No - NEUROLOGICAL Hx Neurological Disorder: No - HEENT Hx HEENT Problems: No - RENAL Hx Chronic Kidney Disease: No - ENDOCRINE/METABOLIC Hx Endocrine Disorders: No - HEMATOLOGICAL/ONCOLOGICAL Hx Cancer: Yes - INTEGUMENTARY Hx Dermatological Problems: No - MUSCULOSKELETAL/RHEUMATOLOGICAL Hx Falls: Yes - GASTROINTESTINAL Hx Gastrointestinal Disorders: No - GENITOURINARY/GYNECOLOGICAL Hx Genitourinary Disorders: Yes Hx Reproductive Disorders: No - PSYCHIATRIC Hx Psychophysiologic Disorder: No Hx Emotional Abuse: No Hx Physical Abuse: No Hx Substance Use: No - SURGICAL HISTORY Hx Mastectomy: No - ANESTHESIA Hx Anesthesia: Yes Hx Anesthesia Reactions: No Hx Malignant Hyperthermia: No Meds Allergies/Adverse Reactions: Allergies Allergy/AdvReac Type Severity Reaction Status Date / Time Sulfa (Sulfonamide Allergy RASH Verified 05/15/18 22:50 Antibiotics) - Medications Medications: Current Medications Acetaminophen (Tylenol 325mg Tab) 650 mg PO Q6H PRN; Protocol PRN Reason: Pain, Mild (1-3) Clonidine HCl (Catapres) 0.1 mg PO Q6H PRN; Protocol PRN Reason: Systolic Blood Pressure Hydrochlorothiazide (Hydrodiuril) 25 mg PO DAILY [facility]; Protocol Meropenem (Merrem Iv 1 Gm Premix) 1 gm in 50 mls @ 50 mls/hr IVPB 0600,1800 [facility]; Protocol Stop: 06/27/18 22:30 Last Admin: 06/19/18 05:59 Dose: 50 mls/hr Losartan Potassium (Cozaar) 100 mg PO DAILY [facility]; Protocol Potassium Chloride (K-Dur 20 Meq Er Tab) 20 meq PO 0800 [facility]; Protocol Tamsulosin HCl (Flomax) 0.4 mg PO 1830 [facility]; Protocol Physical Exam - Constitutional Appears: Chronically Ill - Head Exam Head Exam: NORMAL INSPECTION - ENT Exam ENT Exam: Mucous Membranes Moist - Neck Exam Neck exam: Negative for: Meningismus - Respiratory Exam Respiratory Exam: Decreased Breath Sounds - Cardiovascular Exam Cardiovascular Exam: +S1, +S2 - GI/Abdominal Exam GI & Abdominal Exam: Soft. absent: Tenderness Results - Vital Signs Recent Vital Signs: Last Vital Signs Temp 97.8 F 06/18/18 18:13 Pulse 72 06/18/18 18:13 Resp 16 06/18/18 18:13 BP 133/76 06/18/18 18:13 Pulse Ox Assessment & Plan - Assessment and Plan (Free Text) Plan: Assessment Sepsis due to Enterobacter bacteremia as well as Pseudomonas UTI with probable pyelonephritis in this patient with urinary retention, with prostate CA, need to rule out intra-abdominal infection prostate cancer S/P radiation therapy HTN history of UTI Plan continue Merrem day 5 and will follow up repeat blood cx; 2D echo does not show specific vegetations; follow up CT A/P as well - will need 10-14 days of antibiotics - discussed with patient follow up further plans of Urology PSA is only 2.[address] Ash previously
[2018-06-20] MEDS: Meropenem IV 1 gm in NS 1 GM/50 ML BAG IVPB SCH ×2 (05:14→17:44)
[2018-06-20 07:26] LABS: BASO # 0.02 K/mm3 (0.0-2.0); BASO % 0.3 % (0.0-3.0); EOS # 0.1 (0.0-0.7); EOS % 1.7 % (1.5-5.0); GRAN # 4.93 (1.4-6.5); GRAN % 63.6 % (50.0-68.0); HEMOGLOBIN 11.2 g/dL (14.0-18.0); MEAN CELL VOLUME 90.6 fl (80.0-105.0); MEAN CORPUSCULAR HEMOGLOBIN 28.5 pg (25.0-35.0); MEAN CORPUSCULAR HGB CONC 31.5 g/dl (31.0-37.0); MEAN PLATELET VOLUME 11.2 fl (7.0-11.0); MONO # 0.7 (0.1-0.6); MONO % 8.4 % (1.0-6.0); RBC 3.93 10^6/uL (3.5-6.1); RED CELL DISTRIBUTION WIDTH 14.2 % (11.5-14.5); WHITE BLOOD COUNT 7.7 10^3/uL (4.5-11.0)
[2018-06-20 07:55] LABS: ALB/GLOB RATIO 0.9 (1.1-1.8); ALBUMIN 3.4 g/dL (3.0-4.8); ALT/SGPT 28 U/L (7-56); AST/SGOT 33 U/L (17-59); BLOOD UREA NITROGEN 26 mg/dL (7-21); CALCIUM 9.5 mg/dL (8.4-10.5); GFR NON-AFRICAN AMERICAN > 60
--- NOTE | 2018-06-20 08:27 | HP ---
DATE OF EXAM: 06/19/2018 CHIEF COMPLAINT AND HISTORY OF PRESENT ILLNESS: This is a 72-year-old male who came to the hospital after he had a syncopal episode. He also was having uncontrolled hypertension. The patient had urinary retention. He is now transferred to the transitional care unit for rehab. He has no complaints of any chest pain, no shortness of breath. No headaches. No dizziness. No nausea or vomiting. He feels well. PAST MEDICAL HISTORY: Prostate cancer, hypertension, and UTI. ALLERGIES: SULFA. MEDICATIONS: Flomax and Losartan. SOCIAL HISTORY: He denies smoking, drinking, or alcohol. 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 He is and lives with his . PHYSICAL EXAMINATION: VITAL SIGNS: Temperature 98, pulse 72, blood pressure 122/74, respirations 18. GENERAL: The patient is lying in bed, flat, comfortable. HEENT: No oral lesion. Anicteric sclerae. Moist mucosa. NECK: No JVD, adenopathy, or thyromegaly. CARDIOVASCULAR: S1 and S2, regular. No murmurs, rubs, or gallops. LUNGS: Clear to auscultation bilaterally. No wheeze, rales, or rhonchi. ABDOMEN: Bowel sounds are positive, soft, nontender and nondistended. EXTREMITIES: No cyanosis, clubbing or edema. ASSESSMENT: 1. Prostate cancer. 2. Hypertension. 3. Benign prostatic hypertrophy. PLAN: The patient is currently comfortable. He is on IV antibiotics for pseudomonas infection. He is being followed by infectious disease. He is on Flomax for his BPH. He is on Losartan for his hypertension. He is receiving Tylenol as needed. He is on heart healthy diet. Jose Nicole MD
[2018-06-20] MEDS: Potassium Chloride 20 mEq ER Tab PO SCH (08:33)
--- NOTE | 2018-06-20 10:25 | CON ---
DATE: 06/20/2018 He was transferred from the medical floor to [facility] room 327 where he is there today, which is 06/20/2018. He is feeling much better with the cortisone injection given to the left shoulder on 06/18/2018 and he could move it better and much less pain so he could go for physical therapy. FINAL DIAGNOSIS: Subacromial bursitis left shoulder and to follow him if needed. Eriberto Adorno DO
--- NOTE | 2018-06-20 16:12 | CON ---
DATE: 06/18/2018 ORTHOPEDIC CONSULTATION The patient was seen in the medical floor for Dr. Ash. The patient was seen on approximately 06/16/2018 for his left shoulder pain with restrictive range of motion and tenderness in subacromial space. He has no x-rays, and we ordered an x-ray, but because of his pain situation, we injected with Depo-Medrol and Marcaine into the subacromial space of the left shoulder on 06/18/2018, and hopefully, he will get good results. There are a lot of complications, but he did feel a lot better. FINAL DIAGNOSIS: Subacromial bursitis and impingement of the left non-dominant shoulder, treated with Depo-Medrol and Marcaine with good results. Eriberto Adorno DO
--- NOTE | 2018-06-20 16:25 | CP.PCM.PN ---
Subjective - Date & Time of Evaluation Date of Evaluation: 06/20/18 Time of Evaluation: 09:55 - Subjective Subjective: NO fevers, no nausea, no abdominal pain. Objective - Vital Signs/Intake and Output Vital Signs (last 24 hours): Temp Pulse Resp BP Pulse Ox 97.7 F 74 20 134/67 95 06/19/18 10:00 06/19/18 10:00 06/19/18 10:00 06/19/18 10:00 06/19/18 10:00 Intake and Output: 06/19/18 06/19/18 06:59 18:59 Output Total 2200 Balance -2200 - Medications Medications: Current Medications Acetaminophen (Tylenol 325mg Tab) 650 mg PO Q6H PRN; Protocol PRN Reason: Pain, Mild (1-3) Clonidine HCl (Catapres) 0.1 mg PO Q6H PRN; Protocol PRN Reason: Systolic Blood Pressure Hydrochlorothiazide (Hydrodiuril) 25 mg PO DAILY TAMARA; Protocol Last Admin: 06/19/18 10:33 Dose: 25 mg Meropenem (Merrem Iv 1 Gm Premix) 1 gm in 50 mls @ 50 mls/hr IVPB 0600,1800 TAMARA; Protocol Stop: 06/27/18 22:30 Last Admin: 06/19/18 05:59 Dose: 50 mls/hr Losartan Potassium (Cozaar) 100 mg PO DAILY TAMARA; Protocol Last Admin: 06/19/18 09:50 Dose: 100 mg Potassium Chloride (K-Dur 20 Meq Er Tab) 20 meq PO 0800 TAMARA; Protocol Last Admin: 06/19/18 08:24 Dose: 20 meq Tamsulosin HCl (Flomax) 0.4 mg PO 1830 TAMARA; Protocol - Constitutional Appears: Chronically Ill - Head Exam Head Exam: NORMAL INSPECTION - Neck Exam Neck Exam: absent: Meningismus - Respiratory Exam Respiratory Exam: Decreased Breath Sounds - Cardiovascular Exam Cardiovascular Exam: +S1, +S2 - GI/Abdominal Exam GI & Abdominal Exam: Soft. absent: Tenderness Assessment and Plan - Assessment and Plan (Free Text) Plan: Assessment Sepsis due to Enterobacter bacteremia as well as Pseudomonas UTI with probable pyelonephritis in this patient with urinary retention, with prostate CA, need to rule out intra-abdominal infection prostate cancer S/P radiation therapy HTN history of UTI Plan continue Merrem day 6 and will follow up repeat blood cx; 2D echo does not show specific vegetations; follow up CT A/P as well - will need 10-14 days of antibiotics - discussed with patient follow up further plans of Urology PSA is only 2.[address] Ash previously
--- NOTE | 2018-06-20 23:53 | PN ---
DATE: 06/20/2018 SUBJECTIVE: The patient is 72 years old, seen and examined, sitting in chair, seems to be comfortable. No nausea or vomiting. No fevers. No chills. Eating and tolerating, ambulating. Continue physical therapy. He is . PHYSICAL EXAMINATION: VITAL SIGNS: He is afebrile, pulse 94, respirations 16, and blood pressure 125/86. LUNGS: Bilateral fair airflow. No rhonchi or crackles. HEART: S1 and S2 audible. ABDOMEN: Soft and nontender. No rebound. No guarding. NEUROLOGIC: The patient is awake, alert, oriented, and communicative. LABORATORY DATA: WBC is 7.7, hemoglobin is 11.2, hematocrit 35.6, and platelets 299,000. Chemistry; sodium 140, potassium 4.4, chloride 104, CO2 of 29, BUN 26, and creatinine 1. Blood sugar 101. ASSESSMENT: 1. Pseudomonas aeruginosa urinary tract infection. 2. Enterobacter cloacae bacteremia. 3. History of cancer of prostate. 4. Hypertension. PLAN: Currently, the patient is on meropenem, he is getting 1 g every 12. He will receive physical therapy for gait training. Continue all medications. We will follow up in a.m. Emanuel Ash MD
[2018-06-21] MEDS: Meropenem IV 1 gm in NS 1 GM/50 ML BAG IVPB SCH ×2 (05:36→17:04)
--- NOTE | 2018-06-21 10:17 | PN ---
DATE: 06/21/2018 LOCATION: Room 327, Bed 1. A 72-year-old male. The patient's left shoulder is still feeling pretty comfortable, no undue complaints, and hopefully it will last for a while and he could participate in therapy. FINAL DIAGNOSIS: Bursitis of left shoulder with subacromial impingement, no need for further investigatory tests. Eriberto Adorno DO
[2018-06-21] MEDS: Potassium Chloride 20 mEq ER Tab PO SCH (10:23)
--- NOTE | 2018-06-21 17:51 | CP.PCM.PN ---
Subjective - Date & Time of Evaluation Date of Evaluation: 06/21/18 Time of Evaluation: 08:55 - Subjective Subjective: No fevers, not in distress. Objective - Vital Signs/Intake and Output Vital Signs (last 24 hours): Temp Pulse Resp BP Pulse Ox 98 F 72 18 122/74 99 06/19/18 16:00 06/19/18 16:00 06/19/18 16:00 06/19/18 16:00 06/19/18 16:00 Intake and Output: 06/20/18 06/20/18 06:59 18:59 Output Total 2450 Balance -2450 - Medications Medications: Current Medications Acetaminophen (Tylenol 325mg Tab) 650 mg PO Q6H PRN; Protocol PRN Reason: Pain, Mild (1-3) Clonidine HCl (Catapres) 0.1 mg PO Q6H PRN; Protocol PRN Reason: Systolic Blood Pressure Hydrochlorothiazide (Hydrodiuril) 25 mg PO DAILY TAMARA; Protocol Last Admin: 06/20/18 10:31 Dose: 25 mg Meropenem (Merrem Iv 1 Gm Premix) 1 gm in 50 mls @ 50 mls/hr IVPB 0600,1800 TAMARA; Protocol Stop: 06/27/18 22:30 Last Admin: 06/20/18 05:14 Dose: 50 mls/hr Losartan Potassium (Cozaar) 100 mg PO DAILY TAMARA; Protocol Last Admin: 06/20/18 10:31 Dose: 100 mg Potassium Chloride (K-Dur 20 Meq Er Tab) 20 meq PO 0800 TAMARA; Protocol Last Admin: 06/20/18 08:33 Dose: 20 meq Tamsulosin HCl (Flomax) 0.4 mg PO 1830 TAMARA; Protocol Last Admin: 06/19/18 17:30 Dose: 0.4 mg - Labs Labs: 06/20/18 07:00 06/20/18 07:00 - Constitutional Appears: Chronically Ill - Head Exam Head Exam: NORMAL INSPECTION - Respiratory Exam Respiratory Exam: Decreased Breath Sounds - Cardiovascular Exam Cardiovascular Exam: +S1, +S2 - GI/Abdominal Exam GI & Abdominal Exam: Soft. absent: Tenderness Assessment and Plan - Assessment and Plan (Free Text) Plan: Assessment Sepsis due to Enterobacter bacteremia as well as Pseudomonas UTI with probable pyelonephritis in this patient with urinary retention, with prostate CA, need to rule out intra-abdominal infection prostate cancer S/P radiation therapy HTN history of UTI Plan continue Merrem day 7 and will follow up repeat blood cx; 2D echo does not show specific vegetations; follow up CT A/P as well - will need 10-14 days of antibiotics - discussed with patient follow up further plans of Urology PSA is only 2.[address] Ash previously
[2018-06-22] MEDS: Meropenem IV 1 gm in NS 1 GM/50 ML BAG IVPB SCH ×2 (05:09→18:20)
[2018-06-22] MEDS: Potassium Chloride 20 mEq ER Tab PO SCH (08:16)
--- NOTE | 2018-06-22 08:19 | PN ---
DATE: 06/21/2018 SUBJECTIVE: The patient is 72 years old, seen in the gym. He is very happy. He is making lot of progress. He is more stable to walk. The patient stated he never realized until he started getting therapy that he was so unstable in walking and was weak. He denies any chest pain. No shortness of breath. PHYSICAL EXAMINATION VITAL SIGNS: He is afebrile, pulse 83, respirations 16, and blood pressure 101/60. LUNGS: Bilateral fair airflow. No rhonchi or crackles. HEART: S1, S2, audible. ABDOMEN: Soft, nontender, no rebound, no guarding. NEUROLOGIC: The patient is awake, alert, oriented, and communicative. ASSESSMENT: 1. Pseudomonas aeruginosa urinary tract infection. 2. Enterobacter cloacae bacteremia. 3. History of carcinoma, prostate. 4. Hypertension. 5. Deconditioning and difficulty walking. PLAN: We will continue the patient on current medication and he is receiving meropenem twice a day. He is encouraged physical therapy, gait training, and strengthening exercises. Emanuel Ash MD
--- NOTE | 2018-06-22 16:44 | PN ---
DATE: 06/22/2018 SUBJECTIVE: The patient is a 72-year-old, seen and examined, lying in bed, seems to be comfortable. The patient states he is feeling much better since he started therapy and since he is on IV antibiotics. His walking has improved and he has been benefitting from physical therapy. No fever or chills. No nausea or vomiting. PHYSICAL EXAMINATION VITAL SIGNS: Afebrile, pulse 82, respirations 16, blood pressure 101/60. LUNGS: Bilateral fair airflow. No rhonchi or crackles. HEART: S1 and S2 audible. ABDOMEN: Soft, nontender. No rebound, no guarding. NEUROLOGIC: He is awake, alert, and oriented. Communicative, ambulatory, contact guard. ASSESSMENT: 1. Pseudomonas aeruginosa urinary tract infection. 2. Enterobacter cloacae species bacteremia. Repeat cultures are negative. 3. Deconditioning. 4. Hypertension. 5. History of cancer of prostate. 6. History of urinary retention. PLAN: We will continue the patient on current medications. He is on meropenem 1 g every 12 hours. I will ask Dr. Westfall if we should start bladder training. Currently, he is on Flomax and see if we can add finasteride also. We will leave it up to Dr. Westfall if it is even indicated with history of CA prostate. Follow up the patient in a.m. Emanuel Ash MD
--- NOTE | 2018-06-22 16:57 | CP.PCM.PN ---
Subjective - Date & Time of Evaluation Date of Evaluation: 06/22/18 Time of Evaluation: 08:50 - Subjective Subjective: Comfortable, no nausea, no fevers. Objective - Vital Signs/Intake and Output Vital Signs (last 24 hours): Temp Pulse Resp BP Pulse Ox 97.1 F L 82 16 101/60 100 06/21/18 10:00 06/21/18 10:00 06/21/18 10:00 06/21/18 10:00 06/21/18 10:00 Intake and Output: 06/21/18 06/21/18 06:59 18:59 Intake Total 680 Output Total 2700 Balance -2019 - Medications Medications: Current Medications Acetaminophen (Tylenol 325mg Tab) 650 mg PO Q6H PRN; Protocol PRN Reason: Pain, Mild (1-3) Clonidine HCl (Catapres) 0.1 mg PO Q6H PRN; Protocol PRN Reason: Systolic Blood Pressure Hydrochlorothiazide (Hydrodiuril) 25 mg PO DAILY TAMARA; Protocol Last Admin: 06/21/18 10:23 Dose: 25 mg Meropenem (Merrem Iv 1 Gm Premix) 1 gm in 50 mls @ 50 mls/hr IVPB 0600,1800 TAMARA; Protocol Stop: 06/27/18 22:30 Last Admin: 06/21/18 17:04 Dose: 50 mls/hr Losartan Potassium (Cozaar) 100 mg PO DAILY TAMARA; Protocol Last Admin: 06/21/18 10:23 Dose: 100 mg Potassium Chloride (K-Dur 20 Meq Er Tab) 20 meq PO 0800 TAMARA; Protocol Last Admin: 06/21/18 10:23 Dose: 20 meq Tamsulosin HCl (Flomax) 0.4 mg PO 1830 TAMARA; Protocol Last Admin: 06/21/18 17:39 Dose: 0.4 mg - Labs Labs: 06/20/18 07:00 06/20/18 07:00 - Constitutional Appears: Chronically Ill - Head Exam Head Exam: NORMAL INSPECTION - Respiratory Exam Respiratory Exam: Decreased Breath Sounds - Cardiovascular Exam Cardiovascular Exam: +S1, +S2 - GI/Abdominal Exam GI & Abdominal Exam: Soft. absent: Tenderness Assessment and Plan - Assessment and Plan (Free Text) Plan: Assessment Sepsis due to Enterobacter bacteremia as well as Pseudomonas UTI with probable pyelonephritis in this patient with urinary retention, with prostate CA, need to rule out intra-abdominal infection prostate cancer S/P radiation therapy HTN history of UTI Plan continue Merrem day 8 and repeat blood cx are negative; 2D echo does not show specific vegetations; reviewed CT A/P - will need 10-14 days of antibiotics follow up further plans of Urology PSA is only 2.[address] Ash previously
[2018-06-23] MEDS: Meropenem IV 1 gm in NS 1 GM/50 ML BAG IVPB SCH ×2 (05:05→17:34)
[2018-06-23] MEDS: Potassium Chloride 20 mEq ER Tab PO SCH (08:37)
[2018-06-23 16:45] VITALS: RESP 18
--- NOTE | 2018-06-23 16:59 | PN ---
DATE: 06/23/2018 SUBJECTIVE: The patient is 72 years old, seen and examined, doing well, making good progress. Very happy about how he is feeling. He said he did not feel like this for long time. PHYSICAL EXAMINATION: VITAL SIGNS: He is afebrile, pulse 98, respirations 14, blood pressure 102/66. LUNGS: Bilateral good airflow. No rhonchi or crackle. HEART: S1 and S2 audible. ABDOMEN: Soft. Nontender. No rebound. No guarding. NEUROLOGICAL: The patient is awake, alert, oriented, communicative. ASSESSMENT: 1. Enterobacter cloacae bacteremia. 2. Pseudomonas aeruginosa urinary tract infection. 3. Hypertension. 4. History of cancer of prostate. PLAN: The patient is currently receiving meropenem 1 g every 12. The patient was seen by Dr. Westfall, awaiting input to discontinue Trotter catheter. We will follow up this patient in the a.m. Emanuel Ash MD
--- NOTE | 2018-06-23 20:41 | PN ---
DATE: 06/23/2018 SUBJECTIVE: The patient seen earlier this morning and no fevers, no chills. PHYSICAL EXAMINATION: VITAL SIGNS: Temperature 98, blood pressure is 119/70, respiratory rate of 18. HEENT: Examination of HEENT is unremarkable. NECK: Supple. LUNGS: Have decreased breath sounds. HEART: Normal S1, S2. ABDOMEN: Soft, nontender. LABORATORY EXAMINATION: Reveals the patient's BUN is 26 and creatinine of 1. Microbiology is reviewed. ASSESSMENT AND PLAN: This is a 72-year-old male with sepsis due to Enterobacter bacteremia and Pseudomonas urinary tract infection, probable pyelonephritis in a patient with urinary retention and prostate cancer, need to rule out intraabdominal infection status post radiation, day #9 of meropenem, apparently 10-14 days. Review of orders reveals the patient to be on meropenem which requires renewal, we will do so. Gary Campoverde MD
[2018-06-24] MEDS: Meropenem IV 1 gm in NS 1 GM/50 ML BAG IVPB SCH ×2 (05:13→17:43)
[2018-06-24] MEDS: Potassium Chloride 20 mEq ER Tab PO SCH (08:41)
--- NOTE | 2018-06-24 13:43 | PN ---
DATE: 06/24/2018 SUBJECTIVE: The patient is 72-year-old, seen and examined and doing well. He had catheter removed yesterday, went into retention, so he has to be catheterized again. Otherwise, doing well. PHYSICAL EXAMINATION VITAL SIGNS: He is afebrile, pulse 98, respirations 18, and blood pressure 119/78. LUNGS: Bilateral good airflow. No rhonchi or crackle. HEART: S1 and S2 audible. ABDOMEN: Soft and nontender. No rebound. No guarding. NEUROLOGICAL: Patient is awake, alert, oriented, communicative, and ambulatory. Has indwelling catheter. ASSESSMENT AND PLAN: 1. Pseudomonas urinary track infection. 2. Enterobacter cloacae bacteremia. 3. Repeat cultures are negative. 4. Hypertension. 5. Carcinoma prostate. 6. Leukocytosis, resolved. 7. Urine retention. PLAN: We will continue patient on current antibiotics. He will finish course on 06/27/2018 and he will be discharged on 06/28/2018 and then he will follow with as outpatient. Emanuel Ash MD
--- NOTE | 2018-06-24 15:32 | CP.PCM.PN ---
Subjective - Date & Time of Evaluation Date of Evaluation: 06/24/18 Time of Evaluation: 09:20 - Subjective Subjective: Afebrile, not in distress. Objective - Vital Signs/Intake and Output Vital Signs (last 24 hours): Temp Pulse Resp BP Pulse Ox 98.1 F 73 16 109/61 97 06/22/18 16:51 06/22/18 16:51 06/22/18 16:51 06/22/18 16:51 06/22/18 16:51 Intake and Output: 06/22/18 06/22/18 06:59 18:59 Intake Total 600 Output Total 1300 Balance -700 - Medications Medications: Current Medications Acetaminophen (Tylenol 325mg Tab) 650 mg PO Q6H PRN; Protocol PRN Reason: Pain, Mild (1-3) Clonidine HCl (Catapres) 0.1 mg PO Q6H PRN; Protocol PRN Reason: Systolic Blood Pressure Hydrochlorothiazide (Hydrodiuril) 25 mg PO DAILY TAMARA; Protocol Last Admin: 06/22/18 11:02 Dose: 25 mg Meropenem (Merrem Iv 1 Gm Premix) 1 gm in 50 mls @ 50 mls/hr IVPB 0600,1800 TAMARA; Protocol Stop: 06/27/18 22:30 Last Admin: 06/22/18 05:09 Dose: 50 mls/hr Losartan Potassium (Cozaar) 100 mg PO DAILY TAMARA; Protocol Last Admin: 06/22/18 11:02 Dose: 100 mg Potassium Chloride (K-Dur 20 Meq Er Tab) 20 meq PO 0800 TAMARA; Protocol Last Admin: 06/22/18 08:16 Dose: 20 meq Tamsulosin HCl (Flomax) 0.4 mg PO 1830 TAMARA; Protocol Last Admin: 06/21/18 17:39 Dose: 0.4 mg - Labs Labs: 06/20/18 07:00 06/20/18 07:00 - Constitutional Appears: Chronically Ill - Head Exam Head Exam: NORMAL INSPECTION - Respiratory Exam Respiratory Exam: Decreased Breath Sounds - Cardiovascular Exam Cardiovascular Exam: +S1, +S2 - GI/Abdominal Exam GI & Abdominal Exam: Soft. absent: Tenderness Assessment and Plan - Assessment and Plan (Free Text) Plan: Assessment Sepsis due to Enterobacter bacteremia as well as Pseudomonas UTI with probable pyelonephritis in this patient with urinary retention, with prostate CA, need to rule out intra-abdominal infection prostate cancer S/P radiation therapy HTN history of UTI Plan continue Merrem day 10 and repeat blood cx are negative; 2D echo does not show specific vegetations; reviewed CT A/P - will need 10-14 days of antibiotics follow up further plans of Urology PSA is only 2.[address] Ash previously
[2018-06-25] MEDS: Meropenem IV 1 gm in NS 1 GM/50 ML BAG IVPB SCH ×2 (06:00→17:58)
[2018-06-25] MEDS: Potassium Chloride 20 mEq ER Tab PO SCH (11:43)
--- NOTE | 2018-06-25 12:10 | CP.PCM.PN ---
Subjective - Date & Time of Evaluation Date of Evaluation: 06/25/18 Time of Evaluation: 08:35 - Subjective Subjective: No fevers, no dysuria, no nausea. Objective - Vital Signs/Intake and Output Vital Signs (last 24 hours): Temp Pulse Resp BP Pulse Ox 98.5 F 98 H 18 119/78 99 06/23/18 16:00 06/23/18 16:00 06/23/18 16:00 06/23/18 16:00 06/23/18 16:00 - Medications Medications: Current Medications Acetaminophen (Tylenol 325mg Tab) 650 mg PO Q6H PRN; Protocol PRN Reason: Pain, Mild (1-3) Last Admin: 06/24/18 00:00 Dose: 650 mg Clonidine HCl (Catapres) 0.1 mg PO Q6H PRN; Protocol PRN Reason: Systolic Blood Pressure Hydrochlorothiazide (Hydrodiuril) 25 mg PO DAILY TAMARA; Protocol Last Admin: 06/24/18 10:03 Dose: 25 mg Meropenem (Merrem Iv 1 Gm Premix) 1 gm in 50 mls @ 50 mls/hr IVPB 0600,1800 TAMARA; Protocol Stop: 06/27/18 22:30 Last Admin: 06/24/18 05:13 Dose: 50 mls/hr Losartan Potassium (Cozaar) 100 mg PO DAILY TAMARA; Protocol Last Admin: 06/24/18 10:03 Dose: 100 mg Potassium Chloride (K-Dur 20 Meq Er Tab) 20 meq PO 0800 TAMARA; Protocol Last Admin: 06/24/18 08:41 Dose: 20 meq Tamsulosin HCl (Flomax) 0.4 mg PO 1830 TAMARA; Protocol Last Admin: 06/23/18 17:34 Dose: 0.4 mg - Labs Labs: 06/20/18 07:00 06/20/18 07:00 - Constitutional Appears: Chronically Ill - Head Exam Head Exam: NORMAL INSPECTION - Respiratory Exam Respiratory Exam: Decreased Breath Sounds - Cardiovascular Exam Cardiovascular Exam: +S1, +S2 - GI/Abdominal Exam GI & Abdominal Exam: Soft. absent: Tenderness Assessment and Plan - Assessment and Plan (Free Text) Plan: Assessment Sepsis due to Enterobacter bacteremia as well as Pseudomonas UTI with probable pyelonephritis in this patient with urinary retention, with prostate CA, need to rule out intra-abdominal infection prostate cancer S/P radiation therapy HTN history of UTI Plan continue Merrem day 11-12 and repeat blood cx are negative; 2D echo does not kitty w specific vegetations; reviewed CT A/P - will need 10-14 days of antibiotics follow up further plans of Urology PSA is only 2.[address] Ash previously
--- NOTE | 2018-06-25 17:37 | PN ---
DATE: 06/25/2018 SUBJECTIVE: The patient is 72 years old, seen and examined, lying in bed. Seems to be comfortable. No nausea or vomiting. No diarrhea. Eating and tolerating. PHYSICAL EXAMINATION: VITAL SIGNS: He is afebrile, pulse 84, respirations 18, blood pressure 108/52. LUNGS: Bilateral good airflow. No rhonchi or crackle. HEART: S1 and S2 audible. ABDOMEN: Soft. Nontender. No rebound. No guarding. NEUROLOGICAL: The patient is awake, alert, oriented, communicative, ambulatory. GENITOURINARY: He has indwelling catheter because of urine retention. ASSESSMENT: 1. Enterobacter cloacae bacteremia. 2. Pseudomonas aeruginosa urinary tract infection. 3. Cancer of prostate. 4. Urine retention. 5. Hypertension. PLAN: Currently, the patient is on meropenem. He will finish his course on Wednesday and discharge plan for Wednesday. I will order for CBC, CMP for . Emanuel Ash MD
[2018-06-26] MEDS: Meropenem IV 1 gm in NS 1 GM/50 ML BAG IVPB SCH ×2 (05:40→18:38)
[2018-06-26] MEDS: Potassium Chloride 20 mEq ER Tab PO SCH (08:33)
--- NOTE | 2018-06-26 12:17 | CP.PCM.PN ---
Subjective - Date & Time of Evaluation Date of Evaluation: 06/26/18 Time of Evaluation: 09:45 - Subjective Subjective: Comfortable, no nausea, no fevers, not in distress. Objective - Vital Signs/Intake and Output Vital Signs (last 24 hours): Temp Pulse Resp BP Pulse Ox 97.9 F 95 H 18 116/59 L 97 06/24/18 16:00 06/24/18 16:00 06/24/18 16:00 06/24/18 16:00 06/24/18 16:00 Intake and Output: 06/25/18 06/25/18 06:59 18:59 Intake Total 680 Output Total 2700 Balance -2019 - Medications Medications: Current Medications Acetaminophen (Tylenol 325mg Tab) 650 mg PO Q6H PRN; Protocol PRN Reason: Pain, Mild (1-3) Last Admin: 06/24/18 00:00 Dose: 650 mg Clonidine HCl (Catapres) 0.1 mg PO Q6H PRN; Protocol PRN Reason: Systolic Blood Pressure Hydrochlorothiazide (Hydrodiuril) 25 mg PO DAILY TAMARA; Protocol Last Admin: 06/25/18 11:44 Dose: 25 mg Meropenem (Merrem Iv 1 Gm Premix) 1 gm in 50 mls @ 50 mls/hr IVPB 0600,1800 TAMARA; Protocol Stop: 06/27/18 22:30 Last Admin: 06/25/18 06:00 Dose: 50 mls/hr Losartan Potassium (Cozaar) 100 mg PO DAILY TAMARA; Protocol Last Admin: 06/25/18 11:43 Dose: 100 mg Potassium Chloride (K-Dur 20 Meq Er Tab) 20 meq PO 0800 TAMARA; Protocol Last Admin: 06/25/18 11:43 Dose: 20 meq Tamsulosin HCl (Flomax) 0.4 mg PO 1830 TAMARA; Protocol Last Admin: 06/24/18 17:40 Dose: 0.4 mg - Labs Labs: 06/20/18 07:00 06/20/18 07:00 - Constitutional Appears: Chronically Ill - Head Exam Head Exam: NORMAL INSPECTION - Neck Exam Neck Exam: absent: Meningismus - Respiratory Exam Respiratory Exam: Decreased Breath Sounds - Cardiovascular Exam Cardiovascular Exam: +S1, +S2 - GI/Abdominal Exam GI & Abdominal Exam: Soft. absent: Tenderness Assessment and Plan - Assessment and Plan (Free Text) Plan: Assessment Sepsis due to Enterobacter bacteremia as well as Pseudomonas UTI with probable pyelonephritis in this patient with urinary retention, with prostate CA, need to rule out intra-abdominal infection prostate cancer S/P radiation therapy HTN history of UTI Plan continue Merrem day 13 and repeat blood cx are negative; 2D echo does not show specific vegetations; reviewed CT A/P - will need 10-14 days of antibiotics follow up further plans of Urology PSA is only 2.[address] Ash previously
--- NOTE | 2018-06-26 19:04 | PN ---
DATE: 06/26/2018 SUBJECTIVE: The patient is 72 years old, seen and examined, doing well, eating and tolerating. No nausea or vomiting. No diarrhea. No fever. No chills. Ambulating better. PHYSICAL EXAMINATION: VITAL SIGNS: He is afebrile, pulse 84, respirations 18, blood pressure 108/52. LUNGS: Bilateral fair airflow. No rhonchi or crackle. HEART: S1 and S2 audible. ABDOMEN: Soft. Nontender. No rebound. No guarding. NEUROLOGICAL: The patient is awake, alert, oriented, communicative, ambulatory. GENITOURINARY: Has indwelling catheter for urinary retention. ASSESSMENT: 1. Status post Enterobacter cloacae bacteremia. 2. Pseudomonas aeruginosa. 3. Hypertension. 4. History of cancer of prostate. PLAN: Currently, the patient is on meropenem 1 g twice a day. He will be finishing his course by tomorrow and possible discharge on Wednesday. Emanuel Ash MD
[2018-06-27] MEDS: Meropenem IV 1 gm in NS 1 GM/50 ML BAG IVPB SCH ×2 (05:53→17:29)
[2018-06-27] MEDS: Potassium Chloride 20 mEq ER Tab PO SCH (09:20)
--- NOTE | 2018-06-27 09:48 | PCM.URO ---
Urology Progress Note - Subjective Weak Stream: Yes (gu plans are for discharge home with a [facility]/ dr ty muse) - Objective Intake & Output: Intake & Output 06/26/18 06/27/18 06/27/18 18:59 06:59 18:59 Output Total 1600 Balance -1600 Output: Urine 1600 Urethral ([facility]) 1600 Vital Signs: Vital Signs - 24 hr 06/26/18 06/26/18 10:00 16:00 Temperature 97.1 F L 98.6 F Pulse Rate 85 90 Respiratory 16 18 Rate Blood Pressure 105/61 112/88 O2 Sat by Pulse 96 97 Oximetry
--- NOTE | 2018-06-27 12:31 | CP.PCM.PN ---
Subjective - Date & Time of Evaluation Date of Evaluation: 06/27/18 Time of Evaluation: 09:30 - Subjective Subjective: Afebrile, not in distress. Objective - Vital Signs/Intake and Output Vital Signs (last 24 hours): Temp Pulse Resp BP Pulse Ox 97.2 F L 84 18 108/52 L 100 06/25/18 16:00 06/25/18 16:00 06/25/18 16:00 06/25/18 16:00 06/25/18 16:00 Intake and Output: 06/26/18 06/26/18 06:59 18:59 Output Total 2575 Balance -2575 - Medications Medications: Current Medications Acetaminophen (Tylenol 325mg Tab) 650 mg PO Q6H PRN; Protocol PRN Reason: Pain, Mild (1-3) Last Admin: 06/24/18 00:00 Dose: 650 mg Clonidine HCl (Catapres) 0.1 mg PO Q6H PRN; Protocol PRN Reason: Systolic Blood Pressure Hydrochlorothiazide (Hydrodiuril) 25 mg PO DAILY TAMARA; Protocol Last Admin: 06/26/18 11:14 Dose: 25 mg Meropenem (Merrem Iv 1 Gm Premix) 1 gm in 50 mls @ 50 mls/hr IVPB 0600,1800 TAMARA; Protocol Stop: 06/27/18 22:30 Last Admin: 06/26/18 05:40 Dose: 50 mls/hr Losartan Potassium (Cozaar) 100 mg PO DAILY TAMARA; Protocol Last Admin: 06/26/18 11:14 Dose: 100 mg Potassium Chloride (K-Dur 20 Meq Er Tab) 20 meq PO 0800 TAMARA; Protocol Last Admin: 06/26/18 08:33 Dose: 20 meq Tamsulosin HCl (Flomax) 0.4 mg PO 1830 TAMARA; Protocol Last Admin: 06/25/18 17:57 Dose: 0.4 mg - Labs Labs: 06/20/18 07:00 06/20/18 07:00 - Constitutional Appears: Non-toxic, No Acute Distress, Chronically Ill - Head Exam Head Exam: NORMAL INSPECTION - Respiratory Exam Respiratory Exam: Decreased Breath Sounds - Cardiovascular Exam Cardiovascular Exam: +S1, +S2 - GI/Abdominal Exam GI & Abdominal Exam: Soft. absent: Tenderness Assessment and Plan - Assessment and Plan (Free Text) Plan: Assessment Sepsis due to Enterobacter bacteremia as well as Pseudomonas UTI with probable pyelonephritis in this patient with urinary retention, with prostate CA, clinically improved prostate cancer S/P radiation therapy HTN history of UTI Plan complete Merrem day 14; repeat blood cx are negative; 2D echo does not show specific vegetations; reviewed CT A/P as per Urology, patient is to go home with [facility] PSA is only 2.[address] Ash previously
--- NOTE | 2018-06-27 13:22 | PN ---
DATE: 06/27/2018 SUBJECTIVE: Patient is 72-year-old seen and examined, doing well. He wants to go home today, although his last dose of meropenem is tonight, but he is okay to be staying in the night. Denies any nausea or vomiting. No chest pain, no shortness of breath. PHYSICAL EXAMINATION VITAL SIGNS: The patient is afebrile, pulse 99, respirations 18, blood pressure 112/88. LUNGS: Bilateral fair airflow. No rhonchi or crackle. HEART; S1 and S2 audible. ABDOMEN: Soft, nontender. No rebound. No guarding. NEUROLOGICAL: He is awake, alert, oriented, communicative. GENITOURINARY: He has indwelling catheter. EXTREMITIES: Bilateral leg, no edema. ASSESSMENT: 1. Status post Enterobacter cloacae bacteremia. Repeat cultures are negative. 2. Pseudomonas aeruginosa urinary tract infection. 3. Hypertension. 4. History of cancer of prostate. PLAN: Patient is going to finish meropenem. Continue him on Flomax, losartan, hydrochlorothiazide and discharge. Emanuel Ash MD
[2018-06-28 00:47] VITALS: BP 119/60; PULSE 75; TEMP 98; O2SAT 98
== END 2018-06-27 21:01 | disposition home or self-care (01) | DRG 872 ==
LOC: TRCU 17:17
PROVIDERS: ADMIT Internal Medicine; ATTEND Internal Medicine
PROC: F07Z9FZ Gait Training/Functional Ambulation Treatment using Assistive, Adaptive, Supportive or Protective Equipment (ICD-10-PCS; principal; 2018-06-19)
PROC: F07M6ZZ Therapeutic Exercise Treatment of Musculoskeletal System - Whole Body (ICD-10-PCS; 2018-06-19)
PROC: F08Z2ZZ Grooming/Personal Hygiene Treatment (ICD-10-PCS; 2018-06-19)
DX: A41.59 Other Gram-negative sepsis (principal); N12 Tubulo-interstitial nephritis, not specified as acute or chronic; B96.5 Pseudomonas (aeruginosa) (mallei) (pseudomallei) as the cause of diseases classified elsewhere; I10 Essential (primary) hypertension; N40.0 Benign prostatic hyperplasia without lower urinary tract symptoms; M75.52 Bursitis of left shoulder; Z85.46 Personal history of malignant neoplasm of prostate; Z87.440 Personal history of urinary (tract) infections; Z92.3 Personal history of irradiation; Z88.2 Allergy status to sulfonamides